=== PATIENT | male | born 1985 | race Two or more races ===

== ENCOUNTER 2021-03-07 12:00 | Emergency (ER) | payer OTHER, SELFPAY ==
--- NOTE | ~2021-03-07 | US_ITS ---
EXAMINATION: US VENOUS ULTRASOUND WITH DOPPLER LOWER EXTREMITY, RIGHT CLINICAL INFORMATION: Cellulitis right lower extremity. Assess for DVT. COMPARISON: Bilateral lower extremity venous ultrasound with Doppler 02/08/2018 TECHNIQUE: Ultrasound of the deep veins is performed from the hip to the calf with compression sonography and color and pulse Doppler assessment. Spectral analysis with color-flow imaging is performed. FINDINGS: There is normal venous compression and respiratory variation and augmented flow. The visualized common femoral vein, superficial femoral vein, profunda femoral vein, popliteal vein, and the trifurcation region shows no evidence of deep venous thrombosis. No popliteal fossa cyst demonstrated. US/US venous duplex LE RT IMPRESSION: No DVT demonstrated in the right lower extremity.
[2021-03-07 13:15] VITALS: BP 133/83; PULSE 70; RESP 16; TEMP 36.7; O2SAT 98; BMI 37.5
--- NOTE | 2021-03-07 13:51 | ED.LOWEXIN ---
HPI - Extremity Injury (Lower) General Chief Complaint: Extremity Injury, Lower Stated Complaint: Rt leg swollen Time Seen by Provider: 03/07/21 13:50 Source: patient Mode of arrival: ambulatory Limitations: no limitations History of Present Illness HPI Narrative: [age] year male came in for evaluation of right leg swelling and redness. Patient's symptoms started about 2 days ago, no trauma or injury to the right leg, started to notice redness and hotness on the calf area, no fever or chills, patient otherwise feels normal. Patient declined any recent travel nor prolonged immobilization or trauma to the right lower extremities. Related Data Previous Rx's Medication Instructions Recorded doxycycline hyclate 100 mg capsule 100 mg PO BID #20 cap 03/07/21 Allergies Allergy/AdvReac Type Severity Reaction Status Date / Time No Known Allergies Allergy Unverified 01/22/20 16:55 Review of Systems Review of Systems: All other systems are reviewed and are negative Constitutional: Reports as per HPI and Reports no additional constitutional complaints Eyes: Reports as per HPI and Reports no additional eye complaints Reports system reviewed and no additional complaints, except as documented Cardiovascular: Reports as per HPI and Reports no additional cardiovascular complaints Respiratory: Reports as per HPI and Reports no additional respiratory complaints Gastrointestinal: Reports as per HPI and Reports no additional gastrointestinal complaints Genitourinary: Reports no additional female genitourinary complaints Musculoskeletal: Reports no additional musculoskeletal complaints Skin/Breast: Reports system reviewed and no additional complaints, except as docu Psychiatric: Reports no additional psychiatric complaints Endocrine: Reports no additional endocrine complaints Hematologic/Lymphatic: Reports no additional hematologic/lymphatic complaints Allergic/Immunologic: Reports no additional allergic/immunologic complaints Reports system reviewed and no additional complaints, except as documented and Reports Abnormal speech present [facility] Past Medical History Medical History Asthma Gastric reflux Psoriasis Social History Social History Advance Directives: No Advance Directives Information Provided: No Physical Exam Vital Signs: Vital Signs: Last Vital Signs Temp 98.0 F 03/07/21 13:15 Pulse 70 03/07/21 13:15 Resp 16 03/07/21 13:15 BP 133/83 03/07/21 13:15 Pulse Ox 98 03/07/21 13:15 Body Mass Index 37.5 vital signs have been reviewed as appeared to be correct. Blood pressure normal. Heart rate normal. Respiration rate normal. Temperature normal. Oxygen saturation normal. Appearance: Alert. Oriented X3. No acute distress. Head: Normal external exam. Normocephalic. Atraumatic. No Sam signs noted. No raccoon eyes noted Eyes: PERRLA. EOMI. Conjunctiva and sclera normal. Eyelids normal. ENT: TM's Normal. Pharynx normal. Uvula midline. Moist mucous membranes. No trismus noted. No drooling noted. No muffled voice noted. Neck: Normal inspection. Neck supple. FROM. No adenopathy. Thyroid Normal. No meningeal signs. No neck mass noted. CVS: Normal heart rate and rhythm. Heart sound normal. No murmurs noted. Pulses normal throughout. Respiratory: No respiratory distress. Painless inspiration. Breath sounds normal. No wheezes/rales/rhonchi noted. Chest nontender. No accessory muscle usage noted or decreased air movement noted. Abdomen: Soft and nontender. Bowel sounds normal in all 4 quadrants. No distention noted. No organomegaly noted. No visible injury noted. Back: No CVA tenderness. Full range of motion noted. Skin: Skin warm and dry. Normal skin color. Normal skin turgor. No rashes/lesions/lacerations noted. Extremities: 6 x 7 cm area of redness and hotness and tenderness on the right calf. Neuro: Oriented X 3. Cranial nerve exam: II-XII are grossly intact No motor deficit. No sensory deficit. Reflexes normal. Course Course Course Narrative: right leg cellulitis, no evidence of DVT. Will start on doxycycline p.o. challenge have the patient return in 2 days for wound check. MDM - Extremity Injury (Lower) Imaging Data right leg ultrasound: Radiologist's impression: No DVT demonstrated in the right lower extremity. Discharge Plan Discharge Clinical Impression: Cellulitis Patient Disposition: Home, Self-Care Instructions: Cellulitis (ED) Additional Instructions: return to the ED in 2 days for wound check. Prescriptions: New doxycycline hyclate 100 mg capsule 100 mg PO BID Qty: 20 RF: 0 Referrals: [place],[facility] [Primary Care Provider] - 2 days
== END 2021-03-07 15:23 | disposition home or self-care (01) ==
PROVIDERS: Emergency Provider Emergency Medicine
DX: L03.115 Cellulitis of right lower limb (principal)
CPT/HCPCS: 93971; 99283; 99284

== ENCOUNTER 2022-03-02 19:44 | Emergency (ER) | payer OTHER, SELFPAY ==
[2022-03-02 19:48] VITALS: BP 147/85; PULSE 92; RESP 18; TEMP 37; O2SAT 95; BMI 36.9
--- NOTE | 2022-03-02 21:58 | ED_ITS ---
HPI - Wound/Laceration General Chief Complaint: Wound/Laceration Stated Complaint: Laceration to forehead Time Seen by Provider: 03/02/22 21:36 Source: patient Mode of arrival: ambulatory Limitations: no limitations History of Present Illness HPI narrative: patient comes to the emergency room complaining of a laceration to his forehead. Prior to arrival, patient was trying to fix his car, a ratchet fell on his forehead. patient did not lose consciousness, not on blood thinners, denies any other injuries. Patient states that he is up-to-date with his tetanus shot Related Data Previous Rx's Medication Instructions Recorded doxycycline hyclate 100 mg capsule 100 mg PO BID #20 caps 03/07/21 Allergies Allergy/AdvReac Type Severity Reaction Status Date / Time No Known Allergies Allergy Unverified 01/22/20 16:55 Review of Systems Review of Systems: Constitutional : No Weight loss, No Fever, No Chills, No Night Sweats, No Fatigue, No Malaise ENT/Mouth : No Hearing loss, No Ear Pain, No Nasal Congestion, No Sinus Pain, No Hoarseness, No sore throat, No Rhinorrhea, No Swallowing Difficulty Eyes: No Eye Pain, No Swelling, No Redness, No Foreign Body, No Discharge, No Vision Changes Cardiovascular : No Chest Pain, No SOB, No Dyspnea on Exertion, No Orthopnea, No Edema, No Palpitations Respiratory : No Cough, No Sputum, No Wheezing, No Smoke Exposure, No Dyspnea Gastrointestinal : No Nausea, No Vomiting, No Diarrhea, No Constipation, No abdominal Pain, No Hematochezia, No Melena Genitourinary : no irregular bleeding, No Dysuria, No Urinary Frequency, No Hematuria, No Urinary Incontinence, No Urgency, No Flank Pain, No Urinary Flow Changes, No Hesitancy Musculoskeletal : No joint pain, No Myalgias, No Joint Swelling Skin : laceration to the forehead Neuro : No Weakness, No Numbness, No Paresthesias, No Loss of Consciousness, No Dizziness, No Headache Psych : No Anxiety/Panic, No Depression, No SI/HI/AH/VH, No Social Issues, Heme/Lymph: No Bruising, No Bleeding,No Lymphadenopathy Endocrine : No Polyuria, No Polydipsia, No Temperature Intolerance PMFSH Past Medical History Medical History Asthma Gastric reflux Psoriasis Social History Social History Advance Directives: No Advance Directives Information Provided: No Physical Exam Vital Signs: Vital Signs: Last Vital Signs Temp 98.6 F 03/02/22 19:48 Pulse 92 03/02/22 19:48 Resp 18 03/02/22 19:48 BP 147/85 H 03/02/22 19:48 Pulse Ox 95 03/02/22 19:48 O2 Del Method 03/02/22 19:48 BMI result Body Mass Index 36.9 Const: Other: Appearance: Alert. Oriented X3. No acute distress. Eyes: Pupils equal, round and reactive to light. ENT: Pharynx normal. Neck: Normal inspection. Neck supple. No lymph nodes noted. No crepitus CVS: Normal heart rate and rhythm. Pulses normal. Normal S1 and S2 Respiratory: No respiratory distress. Breath sounds normal. No Wheezing. No rales Abdomen: Soft and nontender. No rigidity. No distention. Skin: Skin warm and dry. there is a 3 cm laceration between the eyebrows Extremities: No lower extremity edema. No Lacerations. No Rash Neuro: Oriented X 3. No motor deficit. No sensory deficit. Moving all e xtremities. No slurred speech. CN 2 through 12 grossly intact Psych: calm, cooperative, normal affect Course Course Course Narrative: Seven stitches were applied. Patient tolerated well the procedure. Procedures Laceration Laceration 1: Site: face ( Forehead, midline between the eyebrows) Description: irregular Depth: simple, single layer Local Anesthetic: lidocaine 2% Amount of anesthesia used (mL): 5 Pre-repair: wound explored Skin layer closed with: nylon Size (cm): 6-0 Number of sutures: 7 Discharge Plan Discharge Clinical Impression: Laceration Patient Disposition: Home, Self-Care Instructions: Laceration (ED) Additional Instructions: if you see any signs of infection such as redness, pus drainage, fever chills, please return to the emergency room. Your stitches need to be removed in 7-10 days. Prescriptions: No Action doxycycline hyclate 100 mg capsule 100 mg PO BID Qty: 20 0RF
== END 2022-03-03 01:22 | disposition home or self-care (01) ==
PROVIDERS: Emergency Provider Emergency Medicine
DX: S01.81XA Laceration without foreign body of other part of head, initial encounter (principal); W26.9XXA Contact with unspecified sharp object(s), initial encounter; Y93.9 Activity, unspecified; Y92.9 Unspecified place or not applicable; Y99.9 Unspecified external cause status; Z79.899 Other long term (current) drug therapy
CPT/HCPCS: 12014; 99281; 99284

== ENCOUNTER 2022-10-03 10:31 | Outpatient (REF) | payer OTHER, SELFPAY ==
--- NOTE | ~2022-10-03 | US_ITS ---
EXAMINATION: US VENOUS ULTRASOUND WITH DOPPLER LOWER EXTREMITY, LEFT CLINICAL INFORMATION: Pain in left lower extremity COMPARISON: None available. TECHNIQUE: Ultrasound of the deep veins is performed from the hip to the calf with compression sonography and color and pulse Doppler assessment. Spectral analysis with color-flow imaging is performed. FINDINGS: There is normal venous compression and respiratory variation and augmented flow. The visualized common femoral vein, superficial femoral vein, profunda femoral vein, popliteal vein, and the trifurcation region shows no evidence of deep venous thrombosis. The peroneal vein is not well visualized. There are small lymph nodes in the groin with largest lymph node measuring 4.5 x 1.2 x 2.8 cm. There is no significant popliteal fossa cyst. If the patient's symptoms persist, followup ultrasound in 5 days 7 days might be of value to exclude proximal propagation from a non-visualized calf vein. US/US venous duplex LE LT IMPRESSION: No DVT demonstrated in the left lower extremity. Several lymph nodes visualize in the left groin with largest lymph node measuring 4.5 cm. It has benign characteristics
== END 2022-10-03 10:32 | disposition home or self-care (01) ==
LOC: HO.US 10:31
PROVIDERS: Visit Provider Student in an Organized Health Care Education/Training Program
DX: M79.605 Pain in left leg (principal)
CPT/HCPCS: 93971

== ENCOUNTER 2022-10-04 09:11 | Emergency (ER) | payer OTHER, SELFPAY ==
[2022-10-04 09:19] VITALS: BP 144/102; PULSE 84; RESP 18; TEMP 37; O2SAT 97; BMI 39.6
[2022-10-04 10:00] VITALS: BP 147/99; PULSE 85; RESP 20; TEMP 37; O2SAT 94
--- NOTE | 2022-10-04 10:13 | ED_ITS ---
HPI - General Adult General Chief complaint: Skin/Abscess/Foreign Body Stated complaint: L leg infection Time Seen by Provider: 10/04/22 10:05 Source: patient Limitations: no limitations History of Present Illness HPI narrative: Patient states on Sunday he developed a small pimple on his left lower pablo. Since then it has spread to a large area of redness. He went to his PCP yesterday who ordered an ultrasound which was negative for DVT but did show inguinal lymphadenopathy. He was started on Keflex and has been taking it for 1 day. Since then, however, the area of redness has spread to about twice the size of the original area. It is now spreading up to just below his knee. He had a similar episode 2 years ago for which she received a dose of IV antibiotics in the emergency department was discharged home on p.o. antibiotics which was successful. He denies any fevers but states he felt sweaty this morning. No other significant systemic symptoms. No history of diabetes but he does have a history of eczema in that leg although lateral more proximal to where the infection started. Related Data Previous Rx's Medication Instructions Recorded doxycycline hyclate 100 mg capsule 100 mg PO BID #20 caps 03/07/21 cephalexin 500 mg capsule 1,000 mg PO BID #40 caps 10/04/22 doxycycline hyclate 100 mg capsule 100 mg PO BID #20 caps 10/04/22 Allergies Allergy/AdvReac Type Severity Reaction Status Date / Time No Known Allergies Allergy Unverified 01/22/20 16:55 Review of Systems Constitutional: Comments: No documented fevers. Positive sweats this morning Cardiovascular: Comments: No chest pain Respiratory: Comments: No cough or dyspnea Gastrointestinal: Comments: No abdominal symptoms Genitourinary: Comments: No urinary symptoms Musculoskeletal: Comments: Some left calf pain without swelling Integumentary/Breasts: Comments: Increased warmth and erythema is left lower leg which is spreading significantly over the last 24 hours Neurologic: Comments: No focal weakness Endocrine: Comments: No history of diabetes [facility] Past Medical History Medical History Asthma Gastric reflux Psoriasis Social History Social History Advance Directives: No Advance Directives Information Provided: Yes Physical Exam ED Vital Signs: Vital Signs - 24 hr 10/04/22 09:19 05/31/23 10:00 Temperature 98.6 F 98.6 F Pulse Rate 84 85 Respiratory Rate 18 20 Blood Pressure 144/102 H 147/99 H Pulse Oximetry 97 94 Oxygen Delivery Method Room Air Room Air BMI result Body Mass Index 39.6 Const Other: Awake and alert. No acute distress. Vital signs stable. Afebrile Resp Other: Clear and equal bilaterally Cardio Other: Regular rate and rhythm without murmurs rubs or gallops GI Other: Soft nontender nondistended Skin Other: Says warm pink and dry. Positive rash, erythema, blanching, with increased warmth, circumferential around left lower leg. Deep redness over the lower 3rd with faint area of erythema in the middle 3rd. There are no areas of fluctuance or clinical evidence of abscess. No areas of drainage. Neuro Other: No gross focal neuro deficits Medications Administered Discontinued Medications Generic Name Dose Route Start Last Admin Trade Name Freq PRN Reason Stop Dose Admin Sodium Chloride 1,000 mls @ 999 mls/hr 10/04/22 10:15 10/04/22 11:30 Ns IV 10/04/22 11:15 999 mls/hr .Q1H1M MARK Administration Doxycycline Hyclate 100 mg/ 250 mls @ 166.67 mls/hr 10/04/22 10:11 10/04/22 11:27 Sodium Chloride IV 10/04/22 11:40 166.67 mls/hr ONCE ONE Administration Medical Decision Making Medical Decision Making [facility] Narrative: Patient with cellulitis of the left lower leg getting significantly worse despite p.o. antibiotics. No obvious abscess. DVT was ruled out yesterday by ultrasound. Will order IV fluids, IV antibiotics. Patient had some mild systemic symptoms this morning but none currently and is afebrile in the emergency department. Will await labs to decide on disposition. 11:43. Workup shows chemistries are normal. Total white count is normal but there is a mild shift to the left. Lactic acid of 0.7. No evidence of sepsis or and organ involvement. He is stable for discharge home on p.o. antibiotics after his 1st dose of IV antibiotics. Lab Data 10/04/22 10:45 10/04/22 10:45 Labs: Lab Results 10/04/22 10/04/22 10/04/22 Range/Units 10:45 10:45 10:45 WBC 6.5 (4.8-10.8) X10*3/uL RBC 4.72 (4.60-5.80) X10*6/uL Hgb 14.6 (14.0-18.0) g/dl Hct 42.5 (42.0-52.0) % MCV 90.0 (80.0-98.0) fL MCH 30.9 (27.0-33.0) pg MCHC 34.4 (31.0-36.0) g/dl RDW 12.7 (11.0-16.0) % Plt Count 225 (160-400) X10*3/uL MPV 10.4 (9.4-12.4) fL Immature Gran % (Auto) 0.5 H (0.0-0.4) % Neut % (Auto) 75.1 H (45-73) % Lymph % (Auto) 16.2 L (20-40) % Mobile % (Auto) 7.7 (2-11) % Eos % (Auto) 0.3 (0-4) % Baso % (Auto) 0.2 (0-2) % Lymph # (Auto) 1.1 L (1.2-4.9) X10*3/uL Mobile # (Auto) 0.5 (0.1-1.2) X10*3/uL Eos # (Auto) 0.0 (0.0-0.4) X10*3/uL Baso # (Auto) 0.0 (0.0-0.2) X10*3/uL Abs Immat Gran (auto) 0.03 (0.00-0.03) X10*3/uL Absolute Neuts (auto) 4.9 (2.0-8.3) x10*3/uL Absolute Nucleated RBC 0.000 (0.0-0.012) X10*3/uL Nucleated RBC % (auto) 0.0 (0.0-0.2) /100WBC Sodium 143 (135-145) mmol/L Potassium 4.4 (3.3-5.1) mmol/L Chloride 106 (96-108) mmol/L Carbon Dioxide 31 H (22-29) mmol/L Anion Gap 10 L (12-20) BUN 14 (9-16) mg/dL Creatinine 0.85 (0.5-1.4) mg/dL Estim Creat Clear Calc 173.9 Estimated GFR > 60 Random Glucose 107 (60-115) mg/dL Lactic Acid 0.7 (0.5-2.0) mmol/L Calcium 9.4 (8.4-10.2) mg/dL Total Bilirubin 0.9 (0.0-1.0) mg/dL AST 27 (5-37) U/L ALT 49 H (0-40) U/L Alkaline Phosphatase 98 (39-117) U/L Total Protein 6.9 (6.5-8.0) g/dL Albumin 4.0 (3.5-5.0) g/dL Discharge Plan Discharge Clinical Impression: Cellulitis Patient Disposition: Home, Self-Care Instructions: Cellulitis (ED) Prescriptions: New cephalexin 500 mg capsule 1,000 mg PO BID Qty: 40 0RF doxycycline hyclate 100 mg capsule 100 mg PO BID Qty: 20 0RF No Action doxycycline hyclate 100 mg capsule 100 mg PO BID Qty: 20 0RF
[2022-10-04 11:12] LABS: MANUAL DIFF FLAG NO
[2022-10-04 11:15] LABS: Basophils Percent Auto 0.2 % (0-2); Eosinophils Percent Auto 0.3 % (0-4); Hematocrit 42.5 % (42.0-52.0); Hemoglobin 14.6 g/dl (14.0-18.0); Imm Gran Abs Auto 0.03 X10*3/uL (0.00-0.03); Imm Gran Pct Auto 0.5 % (0.0-0.4); Lymphocytes Absolute Auto 1.1 X10*3/uL (1.2-4.9); Lymphocytes Percent Auto 16.2 % (20-40); Mean Corpuscular HGB Conc 34.4 g/dl (31.0-36.0); Mean Corpuscular Hemoglobin 30.9 pg (27.0-33.0); Mean Platelet Volume 10.4 fL (9.4-12.4); Monocytes Absolute Auto 0.5 X10*3/uL (0.1-1.2); Monocytes Percent Auto 7.7 % (2-11); Neutrophils Absolute Auto 4.9 x10*3/uL (2.0-8.3); Neutrophils Percent Auto 75.1 % (45-73); Platelet Count 225 X10*3/uL (160-400); Red Blood Count 4.72 X10*6/uL (4.60-5.80); Red Cell Distribution Width 12.7 % (11.0-16.0); White Blood Count 6.5 X10*3/uL (4.8-10.8)
[2022-10-04 11:26] LABS: Lactic Acid 0.7 mmol/L (0.5-2.0)
[2022-10-04] MEDS: Doxycycline Hyclate 100 MG in 0.9 % Sodium Chloride 250 ML 166.67 MG IV (11:27)
[2022-10-04 11:28] LABS: Alanine Aminotransferase 49 U/L (0-40); Alkaline Phosphatase 98 U/L (39-117); Anion Gap 10 (12-20); Aspartate Amino Transferase 27 U/L (5-37); Bilirubin Total 0.9 mg/dL (0.0-1.0); Blood Urea Nitrogen 14 mg/dL (9-16); Calcium 9.4 mg/dL (8.4-10.2); Carbon Dioxide 31 mmol/L (22-29); Chloride 106 mmol/L (96-108); Creatinine Clr Calc Pharmacy 173.9; Estimated Glomerular Filt Rate > 60; Glucose Random 107 mg/dL (60-115); Potassium 4.4 mmol/L (3.3-5.1); Sodium 143 mmol/L (135-145); Total Protein 6.9 g/dL (6.5-8.0)
[2022-10-04] MEDS: 0.9 % Sodium Chloride 1,000 ML 999 ML IV (11:30)
[2022-10-04 12:26] VITALS: BP 162/107; PULSE 65; RESP 18; TEMP 36.9; O2SAT 99
--- NOTE | 2022-10-04 13:33 | PC.NURSE ---
doxycycline gtt still running. will dc after zosyn infuses. pt in nad, resting comfortably, aware of plan for care.
[2022-10-04] MEDS: cefTRIAXone sodium 1 GM in 0.9 % Sodium Chloride 50 ML IV (14:03)
== END 2022-10-04 14:48 | disposition home or self-care (01) ==
PROVIDERS: Emergency Provider Emergency Medicine
DX: L03.116 Cellulitis of left lower limb (principal); M79.662 Pain in left lower leg
CPT/HCPCS: 36415; 80053; 83605; 85025; 87040; 96365; 96366; 96367; 99284; J0696

== ENCOUNTER 2022-11-09 14:52 | Outpatient (REF) | payer OTHER, SELFPAY | END 2022-11-09 14:53 | disposition home or self-care (01) | LOC: HO.US 14:52 | PROVIDERS: Absent Provider General Practice; PCP General Practice; Visit Provider Student in an Organized Health Care Education/Training Program | DX: R22.41 Localized swelling, mass and lump, right lower limb (principal) | CPT/HCPCS: 93971 ==

== ENCOUNTER 2022-11-30 10:52 | Outpatient (AMB) | payer OTHER, SELFPAY ==
--- NOTE | 2022-11-30 10:59 | MHC.OFFVIS ---
Intake Vital Signs 11/30/22 11:08 Height 6 ft 1 in Weight 319 lb 8 oz BMI 42.1 BP 187/96 H Blood Pressure Location Lt brachial Position Sitting Pulse 89 Intake Visit Reasons: Enlarged left inguinal nodes Intake Note: Patient is seen in office for evaluatin and treatment of enlarged left inguinal nodes. Patient c/o: started with red spot on the legs aprox. 3 months, had an ultrasound done that's when he found out about the lymph nodes, legs gets swollen, twinkling [employer] Required: No Accompanied by: Self / Same As Patient Allergies No Known Allergies Allergy (Unverified 11/30/22 11:04) Medication List - Last Reconciled 11/30/22 by Eric South MD blood pressure test kit-large As directed cephalexin 1,000 mg (2 x 500 mg) PO BID cetirizine 10 mg PO DAILY PRN chlorthalidone 25 mg PO QAM doxycycline hyclate 100 mg PO BID doxycycline hyclate 100 mg PO BID halobetasol propionate 0.05% appl topical BID pantoprazole 40 mg PO DAILY HPI HPI Comments History of Present Illness Details 37-year-old male patient presenting for evaluation of left inguinal lymphadenopathy. He reports a 3 month history of swelling and redness in the bilateral legs left greater than right. He was diagnosed with a cellulitis and subsequently started on antibiotics. Evaluation with ultrasounds on several occasions revealed no evidence of a DVT. Examination of the groin however did revealed mildly enlarged inguinal lymph node. He denies a palpable mass or pain in the groin. He denies any previous groin surgery. He denies varicose veins. Since starting oral antibiotics he reports the redness has improved. The swelling is virtually gone in the morning when he wakes up out of bed but by the end the day the swelling returns. [facility] Medical History Asthma Gastric reflux Psoriasis Family History Brother Breast cancer Social History Alcohol intake: current Patient Tobacco Use Status: Former Tobacco user Review of Systems Const All systems reviewed & are unremarkable except as noted in HPI and below Denies chills, Denies fever(s), Denies headache(s), Denies poor appetite and Denies weakness ENT Denies headache(s) Card Denies chest pain, Denies irregular heart rhythm, Denies palpitations and Denies dyspnea Resp Denies cough, Denies excessive phlegm production and Denies dyspnea GI Denies abdominal pain, Denies bloating, Denies change in bowel habits, Denies constipation, Denies heartburn, Denies diarrhea, Denies nausea and Denies vomiting Denies difficulty urinating and Denies urinary frequency Musc Denies back pain, Denies muscle weakness and Denies numbness Skin/Breast Denies changing lesions and Denies unusual bruising Neuro Denies headache(s), Denies numbness, Denies paresthesias and Denies weakness Psych Denies anxiety and Denies depression Endo Denies palpitations Ian/Lymph Denies lymphadenopathy Physical Exam Vital Signs: Last Vital Signs Pulse 89 11/30/22 11:08 BP 187/96 H 11/30/22 11:08 BMI result Body Mass Index 42.1 Const General: cooperative and no acute distress Nutritional Appearance: well nourished Orientation/consciousness: patient oriented x3 Limitations: no limitations HEENT Head: Yes normocephalic and Yes atraumatic Ears: hearing grossly normal bilaterally Resp Effort & Inspection: normal respiratory effort, no audible wheezes, no cough and no respiratory distress Cardio Jugular venous distension: no JVD GI Inspection: Yes normal to inspection Skin Other: Warm, dry, no rash Neuro General: patient oriented x3 Extrem Other: Bilateral 1+ edema with mild erythema bilaterally. No ulcerations identified. No varicose veins are noted in the standing position. Palpation of the bilateral groins is negative for a palpable lymph node. No tenderness is elicited with palpation of the groins. Assessment & Plan Assessment & Plan (1) Lymphadenopathy: Code(s): R59.1 - Generalized enlarged lymph nodes Plan 37-year-old male patient with bilateral lower extremity edema and erythema suggestive of a cellulitis. Evaluation with ultrasound was negative for DVT however a moderately enlarged lymph node was identified in the left groin. On examination no palpable node is appreciated. Findings may be explained by a reactive lymph nodes which would not need to be removed. I would not recommend any surgical intervention at this time. If his leg edema continues I would suggest considering a venous Doppler to evaluate the superficial veins for venous reflux disease. He should follow up as needed. Coding Level of Care Code New Pt Level 4 (56129) Diagnoses Lymphadenopathy R59.1
[2022-11-30 11:08] VITALS: BP 187/96; PULSE 89; BMI 42.1
== END 2022-11-30 11:14 | disposition home or self-care (01) ==
PROVIDERS: PCP General Practice; Referring Provider Student in an Organized Health Care Education/Training Program; Visit Provider Surgery
DX: R59.1 Generalized enlarged lymph nodes (principal)
CPT/HCPCS: 99203

== ENCOUNTER → 2022-11-30 10:52 | Outpatient (BNVA) | payer OTHER, SELFPAY | PROVIDERS: PCP General Practice; Referring Provider Student in an Organized Health Care Education/Training Program; Visit Provider Surgery | DX: R59.1 Generalized enlarged lymph nodes (principal) | CPT/HCPCS: 99202 ==

== ENCOUNTER 2023-01-02 13:15 | Outpatient (AMB) | payer OTHER, SELFPAY ==
[2023-01-02 13:37] VITALS: BMI 42.0
--- NOTE | 2023-01-02 13:37 | MHC.OFFVIS ---
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 He also is feeling a tingling sensation on the bottom of both feet. 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 Complaints include pain over varicosities, swelling of lower extremities, cramping, fatigue, and heaviness of the lower extremities. It has been affecting there daily activities including walking and working as a former learning center instructor. It is noted more so in right leg. Patient denies any previous venous surgery or injections. Patient denies any history of DVT/ PE. Patient denies any history of phlebitis. Trial of compression includes - [id number] They now present for vascular evaluation regarding their varicose veins. [facility] Medical History Asthma Gastric reflux Psoriasis Family History Brother Breast cancer Social History Alcohol intake: current Patient Tobacco Use Status: Former Tobacco user Review of Systems Const Reports as per HPI ENT Reports no additional complaints Card Denies chest pain, Denies chest pain at rest and Denies chest pain with activity Resp Denies chest congestion and Denies cough GI Reports no additional complaints Musc Details: pain over varicosities, aching of lower extremities, swelling, cramping, heaviness and tiredness, itching Denies abnormal gait Skin/Breast Reports pruritus and Denies wounds Neuro Reports no additional complaints and Denies abnormal gait Psych Denies no additional complaints Physical Exam Vital Signs: BMI result Body Mass Index 42.0 Const General: cooperative, healthy appearing and comfortable Orientation/consciousness: oriented to person, oriented to place and oriented to time Neck Carotids: no bruits Chest Chest palpation & inspection: normal inspection of the chest and normal palpation of entire chest wall Resp Effort & Inspection: normal respiratory effort and able to speak in complete sentences Cardio Rate: regular rate Heart sounds: S1 normal heart sound present and S2 normal heart sound present Peripheral pulses: Peripheral pulses 2+ throughout GI Inspection: Yes normal to inspection Skin Other: +2 edema, large rope-like varicosities greater than 4 mm CEAP Classification C4 - skin color changes Ep - Etiology Primary As - superficial veins P - reflux General skin exam: dry skin Neuro General: oriented to person, oriented to place and oriented to time Extrem Right lower extremity: full ROM, normal capillary refill and edema Left lower extremity: full ROM, normal capillary refill and edema Psych Mental Status: mental status grossly normal Assessment & Plan Assessment & Plan (1) Varicose veins of right lower extremity with inflammation: Code(s): I83.11 - Varicose veins of right lower extremity with inflammation Plan: In short, the patient has evidence of venous insufficiency. I have discussed the pathophysiology with the patient. In addition I have provided informational material regarding venous disease to the patient. We have discussed conservative measures including compression, elevation, and exercise. I have also provided a handout regarding appropriate use of compression stockings and where to purchase good compression stockings as well. I have taken the liberty of ordering venous insufficiency testing with the patient. They will follow up with me after testing. The patient had an opportunity to ask questions regarding the treatment plan. All questions were answered. Imaging studies, laboratory studies and physical exam results were discussed and reviewed in detail. No major barriers to understanding were identified. The patient expressed understanding and agreement with the above treatment plan. The patient is aware they should contact our office by phone for worsening of the current condition or the appearance of new symptoms. Thank you for allowing me to participate in the vascular care of this patient. If you have any questions or concerns regarding the treatment for the above condition please do not hesitate to contact me. The office telephone contact is [phone]. This note is constructed using voice recognition software. While every effort has been made to ensure accuracy, test engineering intern errors may have been included. Thank you for allowing me to participate in the care of your patient. Yours sincerely, Marco Cochran MD, FACS, R.P.V.I. Orders: Orders US venous duplex LE BI 1 Week I83.11 - Varicose veins of right lower extremity with inflammation Coding Level of Care Code New Pt Level 4 (74667) Diagnoses Varicose veins of right lower extremity with inflammation I83.11
== END 2023-01-02 14:04 | disposition home or self-care (01) ==
PROVIDERS: PCP General Practice; Visit Provider Surgery Vascular Surgery
DX: I83.11 Varicose veins of right lower extremity with inflammation (principal)
CPT/HCPCS: 99203

== ENCOUNTER → 2023-01-02 13:15 | Outpatient (BNVA) | payer OTHER, SELFPAY | PROVIDERS: PCP General Practice; Visit Provider Surgery Vascular Surgery | DX: I83.11 Varicose veins of right lower extremity with inflammation (principal) | CPT/HCPCS: 99202 ==

== ENCOUNTER 2023-01-15 08:23 | Outpatient (REF) | payer OTHER, SELFPAY ==
--- NOTE | ~2023-01-15 | US_ITS ---
EXAMINATION: US LOWER EXTREMITY VENOUS (REFLUX EXAM), BILATERAL CLINICAL INDICATION: Chronic venous insufficiency with lower extremity varicose veins, inflammation and pain COMPARISON: None. TECHNIQUE: Color flow triplex imaging and compression Doppler was performed to evaluate both the deep and the superficial systems bilaterally. To evaluate the superficial system, the examination was performed in the upright position. Color-flow Doppler ultrasound and compression ultrasound were utilized. In addition, maneuvers were utilized to demonstrate reflux. FINDINGS: 1. DEEP VENOUS ULTRASOUND OF THE RIGHT LOWER EXTREMITY: Common Femoral Vein: Compressible, normal respiratory variation and augmented flow. Femoral Vein: Compressible, normal color flow and augmentation. Popliteal Vein: Compressible, normal augmentation. Deep Reflux: There is no evidence of reflux in the deep system in either the common femoral vein or the popliteal vein. There is no evidence of a Berry's cyst. 2. SUPERFICIAL ULTRASOUND WITH DOPPLER OF RIGHT LOWER EXTREMITY: GREAT SAPHENOUS VEIN: Saphenofemoral Junction: 0.8 cm; Reflux: 0 ms Proximal Thigh: 0.3 cm; Reflux: 0 ms Mid Thigh: 0.4 cm; Reflux: 1940 ms Above Knee: 0.4 cm; Reflux: 2252 ms At Knee: 0.3 cm; Reflux: 0 ms Below Knee: 0.4 cm; Reflux: 0 ms Mid Calf: 0.3 cm; Reflux: 0 ms Ankle: 0.4 cm; Reflux: 0 ms DUPLICATED MEDIAL GREAT SAPHENOUS VEIN: Diameter: None imaged Reflux: NA DUPLICATED LATERAL GREAT SAPHENOUS VEIN: Diameter: 0.3 cm Reflux: None SMALL SAPHENOUS VEIN: Proximal: 0.5 cm; Reflux: 0 ms Distal: 0.2 cm; Reflux: 0 ms VEIN OF GIACOMINI: Size: NA Reflux: NA PERFORATORS: Location: None significant Size: NA Reflux: NA VARICOSITIES: Location: Proximal and mid thigh Size: 0.3 to 0.4 cm Reflux: None 3. DEEP VENOUS ULTRASOUND OF THE LEFT LOWER EXTREMITY: Common Femoral Vein: Compressible, normal respiratory variation and augmented flow. Femoral Vein: Compressible, normal color flow and augmentation. Popliteal Vein: Compressible, normal augmentation. Deep Reflux: There is no evidence of reflux in the deep system in either the common femoral vein or the popliteal vein. There is no evidence of a Berry's cyst. 4. SUPERFICIAL ULTRASOUND WITH DOPPLER OF LEFT LOWER EXTREMITY: GREAT SAPHENOUS VEIN: Saphenofemoral Junction: 0.5 cm; Reflux: 0 ms Proximal Thigh: 0.4 cm; Reflux: 0 ms Mid Thigh: 0.3 cm; Reflux: 0 ms Above Knee: 0.3 cm; Reflux: 2076 ms At Knee: 0.3 cm; Reflux: 0 ms Below Knee: 0.4 cm; Reflux: 0 ms Mid Calf: 0.3 cm; Reflux: 0 ms Ankle: 0.4 cm; Reflux: 0 ms DUPLICATED MEDIAL GREAT SAPHENOUS VEIN: Diameter: None imaged Reflux: NA DUPLICATED LATERAL GREAT SAPHENOUS VEIN: Diameter: 0.3 cm Reflux: None SMALL SAPHENOUS VEIN: Proximal: 0.8 cm; Reflux: 0 ms Distal: 0.3 cm; Reflux: 1956 ms VEIN OF GIACOMINI: Size: NA Reflux: NA PERFORATORS: Location: None significant Size: NA Reflux: NA VARICOSITIES: Location: None significant Size: NA Reflux: NA US/US venous duplex LE BI IMPRESSION: Right: Severe segmental reflux in the great saphenous vein within the mid and distal thigh. Branching varicosities are seen within the thigh. Left: Focal segmental reflux in the great saphenous vein in the distal thigh and small saphenous vein in the distal calf
== END 2023-01-15 08:24 | disposition home or self-care (01) ==
LOC: HO.US 08:23
PROVIDERS: PCP General Practice; Visit Provider Surgery Vascular Surgery
DX: I83.11 Varicose veins of right lower extremity with inflammation (principal)
CPT/HCPCS: 93970

== ENCOUNTER 2023-08-04 11:08 | Emergency (ER) | payer OTHER, SELFPAY ==
--- NOTE | ~2023-08-04 | CT_ITS ---
CT LUMBAR SPINE WITHOUT CONTRAST CLINICAL INFORMATION: Right-sided low back pain after a twisting accident. COMPARISON: None available. TECHNIQUE: A multidetector CT acquisition of the lumbar spine is obtained without contrast. This CT examination was performed using dose optimization techniques as appropriate, variously including the following: *Automated exposure control *Adjustment of mA and/or kV according to patient size (this includes techniques or standardized protocols for targeted exams where dose is matched to indication/reason for exam; i.e. extremities or head) *Use of iterative reconstruction technique FINDINGS: There are 5 nonrib-bearing lumbar-type vertebral bodies. Lumbar alignment is normal. The vertebral body heights overall maintained. There are no acute fractures and there are no acute subluxations. There are chronic endplate Schmorl's nodes at the T12, L1, L2, and L4 levels. There are no acute fractures and there are no acute subluxations. 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 No significant extraspinal soft tissue findings. A large soft disc herniation is suspected along the right dorsal aspect of the L5 vertebral body, likely an inferiorly migrating disc extrusion from the L4-L5 disc, that completely effaces the right L5 lateral recess, suspected to compress the right L5 nerve root in this location. A lumbar spine MRI with and without IV contrast would be helpful in more definitively assessing this abnormality and excluding alternative pathology. At L5-S1, right and left lateral disc protrusions that are in part disc osteophyte along with facet arthropathy result in severe bilateral foraminal stenosis with compression of the exiting L5 nerve roots bilaterally. CT/CT lumbar spine wo IV con IMPRESSION: - A large soft disc herniation is suspected along the right dorsal aspect of the L5 vertebral body, likely an inferiorly migrating disc extrusion from the L4-L5 disc, that completely effaces the right L5 lateral recess, suspected to compress the right L5 nerve root in this location. A lumbar spine MRI with and without IV contrast would be helpful in more definitively assessing this abnormality and excluding alternative pathology. - At L5-S1, right and left lateral disc protrusions that are in part disc osteophyte along with facet arthropathy result in severe bilateral foraminal stenosis with compression of the exiting L5 nerve roots bilaterally.
--- NOTE | ~2023-08-04 | MR_ITS ---
EXAMINATION: MR LUMBAR SPINE WITHOUT AND WITH CONTRAST CLINICAL INFORMATION: Question L5 nerve root compression. Right-sided low back pain reported on recent CT imaging of the lumbar spine. COMPARISON: CT lumbar spine dated 08/04/2023. TECHNIQUE: Multiplanar, multisequence imaging was obtained. Intravenous contrast: Gadavist 10 mL. Limited study with motion artifacts. FINDINGS: VERTEBRAL BODIES AND PARASPINAL STRUCTURES: The marrow signal is within normal limits. There is a mild posterior subluxation at the L4-L5 level with reduced intradiscal signal. Reduced intradiscal signal and mild disc space narrowing evident at the L5-S1 level. There are no compression fractures. The remaining lumbar discs are well-hydrated. The paraspinal soft tissues are unremarkable. CONUS MEDULLARIS AND CAUDA EQUINE: The distal cord, conus tip, and cauda equina nerve roots appear normal. No pathologic intradural enhancement is seen. SPINAL LEVELS: L1-L2, L2-L3, and L3-L4: Well-hydrated normal appearance of the discs without central canal stenosis or foraminal narrowing. L4-L5: Reduced intradiscal signal and posterior subluxation present with a broad-based posterior disc bulge. An annular tear is visible with a large central disc extrusion measuring up to 2 cm TV x 1.9 cm CC x 1.5 cm AP. The disc extrusion severely compresses the thecal sac and migrates inferiorly into the right lateral recess at the level of the inferior endplate of L5, resulting in severe compression of the right L5 nerve root and mass effect upon the right S1 nerve root as well. Enhancement surrounds the disc extrusion as well. Mild facet arthropathy noted. Bulging disc mildly encroaches upon the right neural foramen. L5-S1: Reduced intradiscal signal and mild loss of disc height with a broad-based posterior disc bulge present, with mild impression upon the ventral thecal sac. A focal left subarticular zone disc extrusion results in mass effect upon the left S1 nerve root. Lateralized bulging disc and osseous spurring result in moderate left foraminal encroachment and mild mass effect upon the exiting left L5 nerve root. No central canal stenosis. Endplate spurring and bulging disc also moderately encroach upon the right neural foramen. MR/MR lumbar spine wo/w con IMPRESSION: Limited study with motion artifacts. Posterior subluxation and disc degeneration at the L4-L5 level, with a large central to right lateral recess disc extrusion migrating inferiorly to the inferior L5 endplate level. Large disc extrusion significantly compresses the thecal sac and results in mass effect upon the right L5 and S1 nerve roots. Posterior disc bulge and focal left subarticular zone disc extrusion at the L5-S1 level with mass effect upon the left S1 nerve root. Bulging disc and endplate spurring with moderate left foraminal encroachment and mild distortion of the exiting left L5 nerve root. Moderate right foraminal narrowing. No central canal stenosis. Imaging findings reported to BIBI Valenzuela at 3:36 PM on 08/04/2023.
[2023-08-04 11:20] VITALS: BP 150/97; PULSE 88; RESP 18; TEMP 36.4; O2SAT 96; BMI 42.0
[2023-08-04] MEDS: Acetaminophen 325 MG TABLET 650 MG PO (11:57)
[2023-08-04] MEDS: Lidocaine 4 % Patch ADH..PATCH 1 PATCH TRANSDERMA (11:59)
[2023-08-04] MEDS: Ketorolac Tromethamine 15 MG/ML VIAL IM (12:00)
--- NOTE | 2023-08-04 12:00 | ED_ITS ---
HPI - Back Pain/Injury General Chief Complaint: Back Pain/Injury Stated Complaint: r foot pain up to hip Time Seen by Provider: 08/04/23 11:11 Source: patient and family Mode of arrival: ambulatory Limitations: no limitations History of Present Illness HPI Narrative: 38-year-old male with a past medical history of chronic back pain presents to the emergency department, his , for concerns of right lower back pain radiating down his right lower extremity for the past 2 weeks. He states he was opening a car door when the handle broke causing him to twist his back incorrectly. He reports he has been having pain since. He denies any urinary or fecal incontinence, urinary hesitancy, saddle anesthesias, new paresthesias, or weakness. He reports pain is exacerbated when standing or moving and is relieved when lying down. He reports palpable back pain at the right low back and denies pain throughout the RLE while lying down. He states he has been using [id number] Tylenol in addition to his 's Flexeril and meloxicam and Percocet that he has purchased on the streets . He states he has had moderate relief of pain with these medications. He denies any swelling, erythema, ecchymosis, or history of IV drug use , fever, or chills pertinent positives and negatives discussed in HPI Related Data Home Medications Medication Instructions Recorded Confirmed blood pressure test kit-large #1 ea 11/30/22 11/30/22 cetirizine 10 mg tablet 10 mg PO DAILY PRN 11/30/22 11/30/22 chlorthalidone 25 mg tablet 25 mg PO QAM 11/30/22 11/30/22 halobetasol propionate 0.05 % appl topical BID 11/30/22 11/30/22 topical cream pantoprazole 40 mg tablet,delayed 40 mg PO DAILY 11/30/22 11/30/22 release Previous Rx's Medication Instructions Recorded doxycycline hyclate 100 mg capsule 100 mg PO BID #20 caps 03/07/21 cephalexin 500 mg capsule 1,000 mg (2 x 500 mg) PO BID #40 10/04/22 caps doxycycline hyclate 100 mg capsule 100 mg PO BID #20 caps 10/04/22 methylprednisolone 4 mg tablets in 4 mg PO DAILY #21 ea 08/04/23 a dose pack (Medrol (Lauri)) oxycodone 5 mg capsule 5 mg PO Q6H PRN pain #16 caps 08/04/23 Allergies Allergy/AdvReac Type Severity Reaction Status Date / Time No Known Allergies Allergy Unverified 11/30/22 11:04 Review of Systems 2 Review of Systems: Yes all other systems are reviewed and are negative [facility] Past Medical History Medical History Asthma Gastric reflux Psoriasis Family History Family History Brother Breast cancer Social History Social History Alcohol intake: current Patient Tobacco Use Status: Former Tobacco user Advance Directives: No Advance Directives Information Provided: No Physical Exam 2 Vital Signs: Vital Signs: Last Vital Signs Temp 98.7 F 08/04/23 17:15 Pulse 75 08/04/23 17:15 Resp 15 08/04/23 17:15 BP 165/98 H 08/04/23 17:15 Pulse Ox 97 08/04/23 17:15 O2 Del Method Room Air 08/04/23 17:15 BMI result Body Mass Index 42.0 Nursing notes and vital signs reviewed. GENERAL APPEARANCE: A&0 x 4, generally well appearing, no acute distress HENMT: Normal to inspection, atraumatic, face symmetrical. Normal external ears, nose, and oropharynx clear. EYE: PERRLA, EOM intact, structures appear normal NECK: Supple without lymphadenopathy. No stiffness or restricted ROM. CHEST: Normal to inspection HEART: Normal rate and regular rhythm, normal S1/S2, no M/R/G LUNGS: LS CTA, moving air well. Able to speak in complete sentences. No crackles, wheezes, or rhonchi auscultated ABDOMEN: Soft, nontender, nondistended. Normal bowel sounds noted BACK: No CVAT, no obvious deformity EXTREMITIES: Moving all extremities without difficulty. No cyanosis, clubbing, or edema. Normal capillary refill. NEUROLOGICAL: Alert and oriented, moving all 4 extremities with equal strength. CN not formally tested but appearing grossly intact. Observed to ambulate with normal gait. Cognition normal SKIN: Warm and dry without any lesions, rash, or visible sores PSYCH: Cooperative, normal affect, normal thought process Back/Spine/Pelvis: Coccyx: Coccyx tenderness present Back/spine/pelvis image: 1. Tenderness to palp Course Reevaluation(s) Reevaluation #1: Lumbar CT showing concern for compression from disc extrusion at L4-L5 with recommendation for MRI. MRI lumbar spine ordered. Time: 12:30 Reevaluation #2: I spoke with radiologist regarding lumbar MRI with evidence of L4-L5 huge disc extrusion compressing the thecal sac. Call out to [facility] for neurosurgery consult. Pending return call. Time: 15:40 Reevaluation #3: Case discussed with BIBI Faulkner from Neurosurgery, with plans for outpatient follow-up as patient does not currently have any urinary retention or noted foot drop. BIBI recommends Medrol Dosepak and pain medication for management of symptoms. Strict return precautions given regarding worsening symptoms and follow-up. Time: 16:35 Consultations Consultation #1: Neurosurgery Time: 16:25 Medications Administered Discontinued Medications Generic Name Dose Route Start Last Admin Trade Name Freq PRN Reason Stop Dose Admin Acetaminophen 650 mg 08/04/23 11:34 08/04/23 11:57 Acetaminophen 325 Mg Tablet PO 08/04/23 11:35 650 mg ONCE ONE Administration Dexamethasone Sodium Phosphate 10 mg 08/04/23 16:47 08/04/23 17:04 Dexamethasone Sod Phosphate 10 Mg/Ml Vial IVPUSH 08/04/23 16:48 10 mg ONCE ONE Administration Gadobutrol 10 ml 08/04/23 14:52 08/04/23 14:52 Gadobutrol 10 Ml Vial IVPUSH 08/04/23 14:53 10 ml ONCE ONE Administration Hydromorphone HCl 0.5 mg 08/04/23 13:49 08/04/23 14:08 Hydromorphone Hcl 0.5 Mg/0.5 Ml Syringe IVPUSH 08/04/23 13:50 0.5 mg ONCE ONE Administration Protocol Ketorolac Tromethamine 15 mg 08/04/23 11:34 08/04/23 12:00 Ketorolac Tromethamine 15 Mg/Ml Vial IM 08/04/23 11:35 15 mg ONCE ONE Administration Lidocaine 1 patch 08/04/23 11:34 08/04/23 11:59 Lidocaine 4 % Patch Adh..Patch TRANSDERMA 08/04/23 11:35 1 patch ONCE ONE Administration Protocol Morphine Sulfate 2 mg 08/04/23 13:10 08/04/23 13:17 Morphine Sulfate 2 Mg/Ml Cartridge IVPUSH 08/04/23 13:11 2 mg ONCE ONE Administration Protocol Medical Decision Making Medical Decision Making MDM Narrative: Old records reviewed for previous imaging, lab studies, ECGs, and notes. Patient was assessed the emergency department with no acute distress or toxicity noted. Tylenol, Toradol, and lidocaine patch initially provided for management of discomfort With little relief and comfort and patient was given morphine in addition to Dilaudid for further management. CT scan was completed which showed concern for L4-L5 disc compression and patient was ultimately sent to MRI which also showed L4-L5 disc extrusion with thecal cord compression. Neurosurgery was consulted who reviewed imaging and ultimately recommended outpatient follow-up in 2 weeks as patient does not have any symptoms of urinary retention or footdrop. Patient given Decadron here in the emergency department and Medrol Dosepak since patient's preferred pharmacy in addition to oxycodone for management of discomfort. Patient educated that he can continue use of slxw-qap-snyqcqo medications and educated not to use other people's prescriptions or to get medications off the street. patient reports understanding of need for follow-up in addition to anti-inflammatories and prescribed steroids. Patient educated not to drive or drink alcohol while taking oxycodone pain medication. Patient is safe for discharge at this time with plan for bnib-qjj-lyhjdor Tylenol and/or NSAID such as ibuprofen or naproxen for fever/discomfort with dosing as per packaging. HPI, PE, diagnostics, and plan discussed with patient and family with no unanswered questions at this time. Strict return precautions given to return to the emergency department with new, worsening, or concerning emergent symptoms. Recommended to follow-up with there primary care provider in 24-48 hours for further treatment and management. Differential Diagnosis Differential Diagnoses: The differential diagnosis associated with the presentation includes but not limited to cauda equina, stenosis, radiculopathy, fracture, dislocation, fracture, dislocation, strain, sprain Consult Healthcare Provider Management of the patient was discussed with: [facility] neurosurgery Independent Interpretation I performed an independent interpretation of an: CT Scan Interpretation: MRI Radiology Impression Discussion of test interpretation with radiology: I discussed test interpretation with the radiologist Radiologist Impression: MRI results discussed with [facility] Independent Historian Clinical information obtained from an independent historian. History obtained from or confirmed by: Spouse External Record Review External record reviewed: Inpatient record, Outpatient record, Prior outpatient labs and Prior outpatient radiology Prescription Management I considered prescription management with: Antibiotic were considered but no bacterial infection was identified Critical Care Time Critical Care Time Critical Care Time: Yes Total Critical Care Time: 75 Attestation: 75 minutes critical care time was spent above typical care time Discharge Plan Discharge Clinical Impression: Protrusion of lumbar intervertebral disc Patient Disposition: Home, Self-Care Instructions: Acute Low Back Pain (ED), Foot Drop (ED) Additional Instructions: Your seen in the emergency department for concerns of right-sided back pain. A CT scan and an MRI were done showing protrusion of your disc in your lower back. This protrusion is putting compression on your nerves. Neurosurgery at [facility] was consulted who reviewed your imaging and recommends outpatient follow-up at this time. Please present to the emergency department as soon as possible if you have difficulty with urination or you notice drop foot. This is where you are unable to lift the front part of the foot. This is usually a sign of worsening spinal issues Steroids were given to her in the emergency department and sent to your preferred pharmacy. Please use full course as directed. Pain medication was also sent to your pharmacy. Please do not drink or drive alcohol while taking pain medication. Please follow-up with neurosurgery at the provided contact information. They would like to see within 2 weeks. You are safe for discharge at this time with plan for management of fever or discomfort with jzkj-vwc-dcrksit Tylenol and/or NSAID such as ibuprofen or naproxen with dosing as per packaging. Please return to the emergency department with new, worsening, or concerning emergent symptoms. Recommended to follow-up with your primary care provider in 24-48 hours for further treatment and management. Thank you for choosing [facility]. Prescriptions: New methylprednisolone [Medrol (Lauri)] 4 mg tablets,dose pack 4 mg PO DAILY Qty: 21 0RF oxycodone 5 mg capsule 5 mg PO Q6H PRN (Reason: pain) Qty: 16 0RF Rx Instructions: Partial Fill upon patient request. No Action doxycycline hyclate 100 mg capsule 100 mg PO BID Qty: 20 0RF cephalexin 500 mg capsule 1,000 mg PO BID Qty: 40 0RF doxycycline hyclate 100 mg capsule 100 mg PO BID Qty: 20 0RF pantoprazole 40 mg tablet,delayed release (DR/EC) 40 mg PO DAILY (DME) blood pressure test kit-large Kit See Rx Instructions .ROUTE QAM Qty: 1 Rx Instructions: As directed halobetasol propionate 0.05 % cream topical BID cetirizine 10 mg tablet 10 mg PO DAILY PRN chlorthalidone 25 mg tablet 25 mg PO QAM Referrals: Cheyenne Cruz MD [Primary Care Provider] - Carlos Cross PA [Physician Windows Laptop Technician] - Stand Alone Forms: Work/School Release Interventions: ED Discharge Assessment Last Done: 08/04/23 17:15 Discharge Date/Time: 08/04/23 17:18 Print Language: Albanian
[2023-08-04] MEDS: Morphine Sulfate 2 MG/ML CARTRIDGE IVPUSH (13:17)
[2023-08-04 14:08] VITALS: RESP 15
[2023-08-04] MEDS: HYDROmorphone HCl 0.5 MG/0.5 ML SYRINGE IVPUSH (14:08)
[2023-08-04] MEDS: gadobutroL 10 ML VIAL IVPUSH (14:52)
[2023-08-04 15:16] VITALS: BP 165/98; PULSE 75; RESP 15; O2SAT 97
--- NOTE | 2023-08-04 16:31 | MHC.EDTECH ---
@ 15:42, 1st call placed to [facility] for possible Neuro transfer per provider Sue. @ 16:19, [facility] called back, call transferred to provider. Pt to be followed up outpatient.
[2023-08-04] MEDS: dexAMETHasone sod phosphate 10 MG/ML VIAL IVPUSH (17:04)
[2023-08-04 17:15] VITALS: BP 165/98; PULSE 75; RESP 15; TEMP 37.1; O2SAT 97
== END 2023-08-04 17:18 | disposition home or self-care (01) ==
PROVIDERS: Emergency Provider Student in an Organized Health Care Education/Training Program; PCP General Practice
DX: M51.26 Other intervertebral disc displacement, lumbar region (principal); J45.909 Unspecified asthma, uncomplicated
CPT/HCPCS: 72132; 72158; 96372; 96374; 96375; 96376; 99284; 99285; A9585; J1100; J1170; J1885; J2270

== ENCOUNTER 2023-09-28 10:28 | Emergency (ER) | payer OTHER, SELFPAY ==
--- NOTE | ~2023-09-28 | US_ITS ---
EXAMINATION: US VENOUS ULTRASOUND WITH DOPPLER LOWER EXTREMITY, RIGHT CLINICAL INFORMATION: Pain. Right leg COMPARISON: Ultrasound lower extremity veins dated 01/15/2023. TECHNIQUE: Ultrasound of the deep veins is performed from the hip to the calf with compression sonography and color and pulse Doppler assessment. Spectral analysis with color-flow imaging is performed. FINDINGS: There is normal venous compression and respiratory variation and augmented flow. The visualized common femoral vein, superficial femoral vein, profunda femoral vein, popliteal vein, and the trifurcation region shows no evidence of deep venous thrombosis. There is no significant popliteal fossa cyst. There are multiple enlarged lymph nodes within the right groin. If the patient's symptoms persist, followup ultrasound in 5 days 7 days might be of value to exclude proximal propagation from a non-visualized calf vein. US/US venous duplex LE RT IMPRESSION: No DVT demonstrated in the right lower extremity. Multiple enlarged right groin lymph nodes are incidentally seen.
[2023-09-28 11:16] VITALS: BP 139/79; PULSE 89; RESP 20; TEMP 36.8; O2SAT 97; BMI 40.5
[2023-09-28 12:21] LABS: Basophils Percent Auto 0.1 % (0-2); Hematocrit 42.4 % (42.0-52.0); Hemoglobin 14.7 g/dl (14.0-18.0); Imm Gran Abs Auto 0.05 X10*3/uL (0.00-0.03); Imm Gran Pct Auto 0.3 % (0.0-0.4); Lymphocytes Absolute Auto 0.4 X10*3/uL (1.2-4.9); Lymphocytes Percent Auto 2.9 % (20-40); MANUAL DIFF FLAG SCAN; Mean Corpuscular HGB Conc 34.7 g/dl (31.0-36.0); Mean Corpuscular Hemoglobin 30.9 pg (27.0-33.0); Mean Corpuscular Volume 89.3 fL (80.0-98.0); Mean Platelet Volume 10.6 fL (9.4-12.4); Monocytes Absolute Auto 0.4 X10*3/uL (0.1-1.2); Monocytes Percent Auto 2.4 % (2-11); Neutrophils Absolute Auto 14.4 x10*3/uL (2.0-8.3); Neutrophils Percent Auto 94.3 % (45-73); Platelet Count 210 X10*3/uL (160-400); Red Blood Count 4.75 X10*6/uL (4.60-5.80); Red Cell Distribution Width 13.9 % (11.0-16.0); SCAN SMEAR FLAG 1; White Blood Count 15.3 X10*3/uL (4.8-10.8)
[2023-09-28 12:40] LABS: Lactic Acid 1.8 mmol/L (0.5-2.0)
[2023-09-28 12:41] LABS: SLIDE REVIEW VERIFIED
[2023-09-28 12:43] LABS: Alanine Aminotransferase 58 U/L (0-40); Albumin Level 4.1 g/dL (3.5-5.0); Alkaline Phosphatase 68 U/L (39-117); Anion Gap 12 (12-20); Aspartate Amino Transferase 36 U/L (5-37); Bilirubin Direct 0.3 mg/dL (0.0-0.5); Bilirubin Total 0.7 mg/dL (0.0-1.0); Blood Urea Nitrogen 16 mg/dL (9-16); Carbon Dioxide 25 mmol/L (22-29); Chloride 107 mmol/L (96-108); Creatinine Clr Calc Pharmacy 187.5; Estimated Glomerular Filt Rate > 60; Glucose Random 136 mg/dL (60-115); Potassium 4.3 mmol/L (3.3-5.1); Sodium 140 mmol/L (135-145); Total Protein 7.7 g/dL (6.5-8.0)
--- NOTE | 2023-09-28 15:25 | ED_ITS ---
HPI - Skin/Abscess/Foreign Bdy General Chief complaint: Skin/Abscess/Foreign Body Stated complaint: swelling in legs Time Seen by Provider: 09/28/23 18:28 Source: patient Mode of arrival: ambulatory Limitations: no limitations History of Present Illness ED Provider: ELEN CASE narrative: 38 yo male with PMH of psoriasis but not on any immunosuppressants notes every year when he goes back into the water or the river he gets a rash on his legs. He has never had to be hospitalized. He notes it starts as pink then becomes more purple and painful. He was seen at urgent care yesterday had line drawn on leg and was given cephalexin and prednisone. He came in as the purple dots went above the line drawn complaint: rash Onset (ago): day(s) (1) Tetanus up to date: yes Location: RLE Severity: moderate Quality: burning Pain Consistency: intermittent Relieving factors: none Exacerbating factors: palpation Context: other (hx of same in past when he goes into the water) Associated symptoms: fever Treatments prior to arrival: other (prednisone and cephalexin x 1 day) Related Data Home Medications ?Medication ?Instructions ?Recorded ?Confirmed blood pressure test kit-large #1 ea 11/30/22 11/30/22 cetirizine 10 mg tablet 10 mg PO DAILY PRN 11/30/22 11/30/22 chlorthalidone 25 mg tablet 25 mg PO QAM 11/30/22 11/30/22 halobetasol propionate 0.05 % appl topical BID 11/30/22 11/30/22 topical cream pantoprazole 40 mg tablet,delayed 40 mg PO DAILY 11/30/22 11/30/22 release Previous Rx's ?Medication ?Instructions ?Recorded doxycycline hyclate 100 mg capsule 100 mg PO BID #20 caps 03/07/21 cephalexin 500 mg capsule 1,000 mg (2 x 500 mg) PO BID #40 10/04/22 caps doxycycline hyclate 100 mg capsule 100 mg PO BID #20 caps 10/04/22 methylprednisolone 4 mg tablets in 4 mg PO DAILY #21 ea 08/04/23 a dose pack (Medrol (Lauri)) oxycodone 5 mg capsule 5 mg PO Q6H PRN pain #16 caps 08/04/23 doxycycline hyclate 100 mg capsule 100 mg PO BID 7 days #14 caps 09/28/23 Allergies Allergy/AdvReac Type Severity Reaction Status Date / Time No Known Allergies Allergy Verified 09/28/23 11:19 Review of Systems 2 Review of Systems: Constitutional : pos Fever, No Chills ENT/Mouth : No sore throat, No Rhinorrhea Eyes: No Eye Pain, No Swelling, No Redness Cardiovascular : No Chest Pain, No SOB Respiratory : No Cough, No Sputum Gastrointestinal : No Nausea, No Vomiting, No Diarrhea, No abdominal Pain Genitourinary : No Dysuria, No Hematuria Musculoskeletal : No joint pain, No Myalgias, No Joint Swelling Skin : No Skin Lesions, positive skin rash Neuro : No Weakness, No Numbness, No Headache Psych : No Anxiety, No Depression All other systems reviewed and are negative [facility] Past Medical History Attestation statement: The following information was validated with the patient. Source: old records reviewed Medical History Asthma Gastric reflux Psoriasis Family History Family History Brother Breast cancer Social History Social History Alcohol intake: current Alcohol intake frequency: 0-2 drinks per day Alcohol type: beer, wine and hard liquor Patient Tobacco Use Status: Former Tobacco user Smoked in Last 30 Days: Yes Use of substances other than those prescribed or required for medical reasons: No Advance Directives: No Advance Directives Information Provided: No Physical Exam 2 Vital Signs: Vital Signs: Last Vital Signs Temp 98.2 F 09/28/23 18:27 Pulse 76 09/28/23 18:27 Resp 18 09/28/23 18:27 BP 140/88 H 09/28/23 18:27 Pulse Ox 97 09/28/23 18:27 O2 Del Method Room Air 09/28/23 18:27 BMI result Body Mass Index 40.5 Appearance: Alert. Oriented X3. No acute distress. Eyes: Pupils equal, round and reactive to light. ENT: Pharynx normal. Neck: Normal inspection. Neck supple. CVS: Normal heart rate and rhythm. Pulses normal. Respiratory: No respiratory distress. Breath sounds normal. Abdomen: Soft and nontender. Skin: Skin warm and dry. Normal skin color. Normal skin turgor. Extremities: No lower extremity edema. R leg there is a purplish dots along lacy red rash but no warmth noted it appears more consistent with vasculitis. Neuro: Oriented X 3. No motor deficit. No sensory deficit. Course Course Course Narrative: This is an RME: Additional HPI, ROS, PE not included below will be deferred to primary provider. RME assessment and note performed by: Dai Jain PA-C This is a [id number], with a hx psoriasis, who presents to the ER with complaints of bilateral lower extremity redness, swelling, and pain. Was seen at urgent care and was started on antibiotics which he has been taking and states that the outlined region has spread beyond. Endorsing fevers and chills. Plan: Labs, ultrasound, further ER evaluation needed. Medications Administered Discontinued Medications Generic Name Dose Route Start Last Admin Trade Name Freq PRN Reason Stop Dose Admin Piperacillin Sod/Tazobactam 50 mls @ 100 mls/hr 09/28/23 18:34 09/28/23 18:46 Sod 3.375 gm/ Sodium Chloride IV 09/28/23 19:03 100 mls/hr ONCE ONE Administration Medical Decision Making Medical Decision Making [facility] Narrative: 38 yo male with PMH of psoriasis but not on joann medications here with c/o rash to right leg he gets yearly after going into the water no prior need for IV antibiotics or admission clinically it looks more like vasculitis - at this time not toxic will continue prednisone/cephalexin and start on doxy. Overall not toxic. Differential Diagnosis Differential Diagnoses: The differential diagnosis associated with the presentation includes vasculitis, cellulitis Admission/Observation Consideration of admission/observation: Escalation of care including admission/observation considered afebrile here, WBC count due to prednisone at this time will continue outpatient course of steroids and antibiotics refer to PCP Lab Data [facility] Lab Attestation statement: I reviewed the patient's lab results. 09/28/23 12:12 09/28/23 12:12 Labs: Lab Results 09/28/23 09/28/23 Range/Units 12:12 16:46 WBC 15.3 H (4.8-10.8) X10*3/uL RBC 4.75 (4.60-5.80) X10*6/uL Hgb 14.7 (14.0-18.0) g/dl Hct 42.4 (42.0-52.0) % MCV 89.3 (80.0-98.0) fL MCH 30.9 (27.0-33.0) pg MCHC 34.7 (31.0-36.0) g/dl RDW 13.9 (11.0-16.0) % Plt Count 210 (160-400) X10*3/uL MPV 10.6 (9.4-12.4) fL Immature Gran % (Auto) 0.3 (0.0-0.4) % Neut % (Auto) 94.3 H (45-73) % Lymph % (Auto) 2.9 L (20-40) % [place] % (Auto) 2.4 (2-11) % Eos % (Auto) 0.0 (0-4) % Baso % (Auto) 0.1 (0-2) % Lymph # (Auto) 0.4 L (1.2-4.9) X10*3/uL [place] # (Auto) 0.4 (0.1-1.2) X10*3/uL Eos # (Auto) 0.0 (0.0-0.4) X10*3/uL Baso # (Auto) 0.0 (0.0-0.2) X10*3/uL Abs Immat Gran (auto) 0.05 H (0.00-0.03) X10*3/uL Absolute Neuts (auto) 14.4 H (2.0-8.3) x10*3/uL Absolute Nucleated RBC 0.000 (0.0-0.012) X10*3/uL Nucleated RBC % (auto) 0.0 (0.0-0.2) /100WBC Smear Tech's Comments VERIFIED PT 13.9 H (11.1-13.3) SEC INR 1.1 (0.9-1.1) APTT 28.9 (26.0-36.8) SEC Sodium 140 (135-145) mmol/L Potassium 4.3 (3.3-5.1) mmol/L Chloride 107 (96-108) mmol/L Carbon Dioxide 25 (22-29) mmol/L Anion Gap 12 (12-20) BUN 16 (9-16) mg/dL Creatinine 0.79 (0.5-1.4) mg/dL Estim Creat Clear Calc 187.5 Estimated GFR > 60 Random Glucose 136 H (60-115) mg/dL Lactic Acid 1.8 (0.5-2.0) mmol/L Calcium 10.0 D (8.4-10.2) mg/dL Total Bilirubin 0.7 (0.0-1.0) mg/dL Direct Bilirubin 0.3 (0.0-0.5) mg/dL AST 36 (5-37) U/L ALT 58 H (0-40) U/L Alkaline Phosphatase 68 (39-117) U/L Total Protein 7.7 (6.5-8.0) g/dL Albumin 4.1 (3.5-5.0) g/dL Independent Interpretation I performed an independent interpretation of an: Ultrasound (no DVT) Radiology Impression Discussion of test interpretation with radiology: I have reviewed the radiologist's reading. External Record Review External record reviewed: Inpatient record Prescription Management I considered prescription management with: Antibiotic and Other Discharge Plan Discharge Clinical Impression: Vasculitis Patient Disposition: Home, Self-Care Instructions: Cellulitis (ED) Additional Instructions: return for redness or fevers/redness that goes up to the knee as discussed. continue cephalexin and prednisone On doxycycline, do not take pills immediately before going to bed and swallow pills with plenty of water. Avoid direct sunlight, iron, antacids, and Pepto Bismol. Call your provider if you develop new ringing in your ears, new problems hearing, dizziness, difficulty swallowing, rash, abdominal discomfort, nausea, or diarrhea.? Prescriptions: New doxycycline hyclate 100 mg capsule 100 mg PO BID 7 Days Qty: 14 0RF No Action doxycycline hyclate 100 mg capsule 100 mg PO BID Qty: 20 0RF cephalexin 500 mg capsule 1,000 mg PO BID Qty: 40 0RF doxycycline hyclate 100 mg capsule 100 mg PO BID Qty: 20 0RF methylprednisolone [Medrol (Lauri)] 4 mg tablets,dose pack 4 mg PO DAILY Qty: 21 0RF oxycodone 5 mg capsule 5 mg PO Q6H PRN (Reason: pain) Qty: 16 0RF Rx Instructions: Partial Fill upon patient request. pantoprazole 40 mg tablet,delayed release (DR/EC) 40 mg PO DAILY (DME) blood pressure test kit-large Kit See Rx Instructions .ROUTE QAM Qty: 1 Rx Instructions: As directed halobetasol propionate 0.05 % cream topical BID cetirizine 10 mg tablet 10 mg PO DAILY PRN chlorthalidone 25 mg tablet 25 mg PO QAM Print Language: Upper Sorbian
[2023-09-28 15:28] VITALS: BP 148/117; PULSE 86; RESP 20; TEMP 36.3; O2SAT 96
[2023-09-28 17:09] LABS: INTERNATIONAL NORM RATIO 1.1 (0.9-1.1); Prothrombin Time 13.9 SEC (11.1-13.3)
[2023-09-28 17:12] LABS: Partial Thromboplastin Time 28.9 SEC (26.0-36.8)
[2023-09-28 18:27] VITALS: BP 140/88; PULSE 76; RESP 18; TEMP 36.8; O2SAT 97
--- NOTE | 2023-09-28 18:45 | MHC.EDTECH ---
Patient requested food and liquids, given liquids and sandwich.
[2023-09-28] MEDS: Piperacillin Sodium/Tazobactam 3.375 GM in 0.9 % Sodium Chloride 50 ML IV (18:46)
[2023-09-28 19:57] VITALS: BP 127/74; PULSE 80; RESP 18; TEMP 36.7; O2SAT 98
[2023-09-28 20:02] VITALS: BP 127/74; PULSE 80; RESP 18; TEMP 36.7; O2SAT 98
== END 2023-09-28 20:02 | disposition home or self-care (01) ==
PROVIDERS: Physician Assistant Medical; Emergency Provider Emergency Medicine
DX: I77.6 Arteritis, unspecified (principal); R21 Rash and other nonspecific skin eruption; M79.605 Pain in left leg; M79.604 Pain in right leg; M79.89 Other specified soft tissue disorders; L40.9 Psoriasis, unspecified; J45.909 Unspecified asthma, uncomplicated; Z79.899 Other long term (current) drug therapy
CPT/HCPCS: 36415; 80048; 80076; 83605; 85025; 85610; 85730; 87040; 93971; 96365; 99284; J2543

== ENCOUNTER → 2024-02-25 20:30 | Outpatient (REF) | payer OTHER, SELFPAY | LOC: HO.SL 20:30 | PROVIDERS: PCP General Practice; Visit Provider General Practice | DX: G47.33 Obstructive sleep apnea (adult) (pediatric) (principal); R06.83 Snoring | CPT/HCPCS: 95810 ==

== ENCOUNTER → 2024-02-25 20:30 | Outpatient (BNV) | payer OTHER, SELFPAY | PROVIDERS: PCP General Practice; Visit Provider Internal Medicine | DX: G47.33 Obstructive sleep apnea (adult) (pediatric) (principal) | CPT/HCPCS: 95810 ==

== ENCOUNTER 2024-05-21 14:06 | Emergency (ER) | payer OTHER, SELFPAY ==
--- NOTE | ~2024-05-21 | CT_ITS ---
CLINICAL HISTORY: Left nostril mass? deviated septum? CT maxillofacial without contrast Comparison: None Findings: Complete occlusion of the left nasal cavity and left maxillary sinus. Partial occlusion of the tglp-rjgvmta-ashz-right mastoid air cells. Left maxillary sinus opacification essentially hyperdense suggesting fungal sinusitis. Left maxillary sinus wall thickening and sclerosis indicative of chronicity. Sphenoid sinuses and frontal sinuses are clear. No mastoid air cell effusion. No destructive bony changes or acute fracture. Minimal deviation of the bony nasal septum to the right. Orbital structures normal. IMPRESSION: Incomplete opacification of the left nasal cavity and left maxillary sinus as well as opacification of the kaot-tzrnfig-rmbw-right ethmoid air cells. Central hyperdense appearance of the left maxillary sinus opacification suggest chronic fungal sinusitis. This document has been electronically signed by: Raghu Ventura MD on 05/21/2024 19:13:46
[2024-05-21 14:35] VITALS: BP 153/83; PULSE 88; RESP 18; TEMP 37.1; O2SAT 96; BMI 36.9
--- NOTE | 2024-05-21 14:36 | ED.GENADULT ---
HPI - General Adult General Chief complaint: Upper Respiratory Symptoms Stated complaint: Cold Symptoms Eye Pain Time Seen by Provider: 05/21/24 17:42 History of Present Illness HPI narrative: Patient with history of chronic sinusitis and nasal blockages complains that yesterday he noticed a white mass in the left nostril, he has had no trauma and does have some accompanying mild pain in the left orbit and left side of his upper face, but denies any redness or rash or discharge from the nose, no fever No headache no eye pain no vision change no sore throat no chest pain no shortness of breath no cough Related Data Home Medications ?Medication ?Instructions ?Recorded ?Confirmed blood pressure test kit-large #1 ea 11/30/22 11/30/22 cetirizine 10 mg tablet 10 mg PO DAILY PRN 11/30/22 11/30/22 chlorthalidone 25 mg tablet 25 mg PO QAM 11/30/22 11/30/22 halobetasol propionate 0.05 % appl topical BID 11/30/22 11/30/22 topical cream pantoprazole 40 mg tablet,delayed 40 mg PO DAILY 11/30/22 11/30/22 release Previous Rx's ?Medication ?Instructions ?Recorded doxycycline hyclate 100 mg capsule 100 mg PO BID #20 caps 03/07/21 cephalexin 500 mg capsule 1,000 mg (2 x 500 mg) PO BID #40 10/04/22 caps doxycycline hyclate 100 mg capsule 100 mg PO BID #20 caps 10/04/22 methylprednisolone 4 mg tablets in 4 mg PO DAILY #21 ea 08/04/23 a dose pack (Medrol (Lauri)) oxycodone 5 mg capsule 5 mg PO Q6H PRN pain #16 caps 08/04/23 doxycycline hyclate 100 mg capsule 100 mg PO BID 7 days #14 caps 09/28/23 Allergies Allergy/AdvReac Type Severity Reaction Status Date / Time No Known Allergies Allergy Verified 05/21/24 14:37 [facility] Past Medical History Source: nursing notes reviewed Medical History Asthma Gastric reflux Psoriasis Family History Family History Brother Breast cancer Social History Social History Alcohol intake: current Alcohol intake frequency: 0-2 drinks per day Alcohol type: beer, wine and hard liquor Patient Tobacco Use Status: Former Tobacco user Advance Directives: No Advance Directives Information Provided: No Do you have a plan to hurt others: No Plan Physical Exam ED Vital Signs: Vital Signs - 24 hr 05/21/24 14:35 05/21/24 17:48 05/21/24 20:12 Temperature 98.8 F 97.8 F 98.2 F Pulse Rate 88 63 66 Respiratory Rate 18 15 18 Blood Pressure 153/83 H 148/85 H 161/77 H Pulse Oximetry 96 94 96 Oxygen Delivery Method Room Air Room Air Room Air BMI result Body Mass Index 36.9 General appearance no acute distress, the patient breathe through his mouth and is very congested Eyes no redness or discharge, no significant redness around the left orbit, pupils equal round reactive to light and extraocular motions are intact The nose there is an obvious white mass in the left nostril, but otherwise no nasal discharge no significant sinus tenderness no obvious swelling no abscess Pharynx is clear without redness swelling or exudate Neck is supple The ears are clear no redness or bulging Chest is clear to auscultation bilateral with full symmetrical equal breath sounds Heart no murmur Abdomen soft nontender Extremities full range of motion x4 Course Course Course Narrative: RME, this is a rapid medical exam performed by Michael Dallas please refer to primary provider for complete H&P- 39-year-old male presents for evaluation of left-sided facial pain and congestion. He reports this is a chronic issue and he is due to see a surgeon in 2 months for this. He has not been on any antibiotics recently. He has pain below his left eye and facial swelling. Plan for viral swabs and strep swab. Viral and strep swabs were negative Patient is here for the mass in the left nostril , case was discussed with Dr. Thakur who advised noncontrast CT At 19:00 case is signed out to physician special events assistant Gail to follow CT results Reevaluation(s) Reevaluation #1: I Madhavi Cooley PA-C have accepted care of the patient and signed out pending imaging and final disposition CT face:Complete occlusion of the left nasal cavity and left maxillary sinus. Partial occlusion of the ynnk-ryscrnk-sksl-right mastoid air cells. Left maxillary sinus opacification essentially hyperdense suggesting fungal sinusitis. Left maxillary sinus wall thickening and sclerosis indicative of chronicity. Sphenoid sinuses and frontal sinuses are clear. No mastoid air cell effusion. No destructive bony changes or acute fracture. Minimal deviation of the bony nasal septum to the right. Orbital structures normal. IMPRESSION: Incomplete opacification of the left nasal cavity and left maxillary sinus as well as opacification of the prza-ottitax-zshf-right ethmoid air cells. Central hyperdense appearance of the left maxillary sinus opacification suggest chronic fungal sinusitis. This document has been electronically signed by: Raghu Ventura MD on 05/21/2024 19:13:46 Dictated By: Raghu Ventura MD Signed By: <Electronically signed by Raghu Ventura MD in [place]> 05/21/241914 Medical Decision Making Lab Data 05/21/24 16:22 05/21/24 16:22 Labs: Lab Results 05/21/24 Range/Units 16:22 WBC 5.0 (4.8-10.8) X10*3/uL RBC 4.42 L (4.60-5.80) X10*6/uL Hgb 13.4 L (14.0-18.0) g/dl Hct 39.4 L (42.0-52.0) % MCV 89.1 (80.0-98.0) fL MCH 30.3 (27.0-33.0) pg MCHC 34.0 (31.0-36.0) g/dl RDW 12.9 (11.0-16.0) % Plt Count 210 (160-400) X10*3/uL MPV 9.9 (9.4-12.4) fL Immature Gran % (Auto) 0.2 (0.0-0.4) % Neut % (Auto) 68.5 (45-73) % Lymph % (Auto) 21.4 (20-40) % [place] % (Auto) 8.7 (2-11) % Eos % (Auto) 0.8 (0-4) % Baso % (Auto) 0.4 (0-2) % Lymph # (Auto) 1.1 L (1.2-4.9) X10*3/uL [place] # (Auto) 0.4 (0.1-1.2) X10*3/uL Eos # (Auto) 0.0 (0.0-0.4) X10*3/uL Baso # (Auto) 0.0 (0.0-0.2) X10*3/uL Abs Immat Gran (auto) 0.01 (0.00-0.03) X10*3/uL Absolute Neuts (auto) 3.4 (2.0-8.3) x10*3/uL Absolute Nucleated RBC 0.000 (0.0-0.012) X10*3/uL Nucleated RBC % (auto) 0.0 (0.0-0.2) /100WBC Sodium 145 (135-145) mmol/L Potassium 3.9 (3.3-5.1) mmol/L Chloride 106 (96-108) mmol/L Carbon Dioxide 31 H (22-29) mmol/L Anion Gap 12 (12-20) BUN 16 (9-16) mg/dL Creatinine 0.86 (0.5-1.4) mg/dL Estim Creat Clear Calc 162.6 Estimated GFR > 60 Random Glucose 131 H (60-115) mg/dL Calcium 9.5 (8.4-10.2) mg/dL Influenza Type A (PCR) NEGATIVE (Negative) Influenza Type B (PCR) NEGATIVE (Negative) RSV RNA Qual (PCR) NEGATIVE (Negative) SARS-CoV-2 RNA (RT-PCR) NEGATIVE (Negative) S. pyogenes GrpA LINUS Negative (Negative) Discharge Plan Discharge Clinical Impression: Nasal mass, Fungal sinusitis Patient Disposition: Home, Self-Care Instructions: Sinusitis (ED) Additional Instructions: You were found to have chronic fungal sinusitis. Call your ENT specialist tomorrow, you need to be seen sooner rather than later. I am also providing you with a contact for our infectious disease provider, you may require their consult as well. Do not use any nasal sprays that contain steroid. You can use saline nasal sprays. You could also try [id number] Mucinex, to help with your excessive secretions. Prescriptions: No Action doxycycline hyclate 100 mg capsule 100 mg PO BID Qty: 20 0RF cephalexin 500 mg capsule 1,000 mg PO BID Qty: 40 0RF doxycycline hyclate 100 mg capsule 100 mg PO BID Qty: 20 0RF methylprednisolone [Medrol (Lauri)] 4 mg tablets,dose pack 4 mg PO DAILY Qty: 21 0RF oxycodone 5 mg capsule 5 mg PO Q6H PRN (Reason: pain) Qty: 16 0RF Rx Instructions: Partial Fill upon patient request. doxycycline hyclate 100 mg capsule 100 mg PO BID 7 Days Qty: 14 0RF pantoprazole 40 mg tablet,delayed release (DR/EC) 40 mg PO DAILY (DME) blood pressure test kit-large Kit See Rx Instructions .ROUTE QAM Qty: 1 Rx Instructions: As directed halobetasol propionate 0.05 % cream topical BID cetirizine 10 mg tablet 10 mg PO DAILY PRN chlorthalidone 25 mg tablet 25 mg PO QAM Referrals: Sophia Albright MD [Physician] - (chronic fungal sinusitis, just found on CT) Print Language: Com[place]an
[2024-05-21 16:26] LABS: MANUAL DIFF FLAG NO
[2024-05-21 16:31] LABS: Basophils Percent Auto 0.4 % (0-2); Eosinophils Percent Auto 0.8 % (0-4); Hematocrit 39.4 % (42.0-52.0); Hemoglobin 13.4 g/dl (14.0-18.0); Imm Gran Abs Auto 0.01 X10*3/uL (0.00-0.03); Imm Gran Pct Auto 0.2 % (0.0-0.4); Lymphocytes Absolute Auto 1.1 X10*3/uL (1.2-4.9); Lymphocytes Percent Auto 21.4 % (20-40); Mean Corpuscular Hemoglobin 30.3 pg (27.0-33.0); Mean Corpuscular Volume 89.1 fL (80.0-98.0); Mean Platelet Volume 9.9 fL (9.4-12.4); Monocytes Absolute Auto 0.4 X10*3/uL (0.1-1.2); Monocytes Percent Auto 8.7 % (2-11); Neutrophils Absolute Auto 3.4 x10*3/uL (2.0-8.3); Neutrophils Percent Auto 68.5 % (45-73); Platelet Count 210 X10*3/uL (160-400); Red Blood Count 4.42 X10*6/uL (4.60-5.80); Red Cell Distribution Width 12.9 % (11.0-16.0)
[2024-05-21 16:40] LABS: Anion Gap 12 (12-20); Blood Urea Nitrogen 16 mg/dL (9-16); Calcium 9.5 mg/dL (8.4-10.2); Carbon Dioxide 31 mmol/L (22-29); Chloride 106 mmol/L (96-108); Creatinine Clr Calc Pharmacy 162.6; Estimated Glomerular Filt Rate > 60; Glucose Random 131 mg/dL (60-115); Potassium 3.9 mmol/L (3.3-5.1); Sodium 145 mmol/L (135-145)
[2024-05-21 16:49] LABS: IDNOW Serial# 58CA691E; Strep A Nucleic Acid Negative (Negative)
[2024-05-21 17:06] LABS: Influenza A PCR NEGATIVE (Negative); Influenza B PCR NEGATIVE (Negative); Resp Syncy Virus RNA Qual PCR NEGATIVE (Negative); SARS COV2 PCR INHOUSE NEGATIVE (Negative)
[2024-05-21 17:48] VITALS: BP 148/85; PULSE 63; RESP 15; TEMP 36.6; O2SAT 94
[2024-05-21 20:12] VITALS: BP 161/77; PULSE 66; RESP 18; TEMP 36.8; O2SAT 96
[2024-05-21 21:21] VITALS: BP 161/77; PULSE 66; RESP 18; TEMP 36.8; O2SAT 96
== END 2024-05-21 21:21 | disposition home or self-care (01) ==
PROVIDERS: Physician Assistant; Emergency Provider Emergency Medicine
DX: J32.8 Other chronic sinusitis (principal); J34.89 Other specified disorders of nose and nasal sinuses; R22.0 Localized swelling, mass and lump, head; Z79.899 Other long term (current) drug therapy; Z03.818 Encounter for observation for suspected exposure to other biological agents ruled out; Z87.891 Personal history of nicotine dependence
CPT/HCPCS: 0241U; 36415; 70486; 80048; 85025; 87651; 99283; 99284

== ENCOUNTER → 2024-05-21 18:13 | Outpatient (BNV) | payer OTHER, SELFPAY | PROVIDERS: Emergency Provider Emergency Medicine; Visit Provider Radiology Diagnostic Radiology | DX: J32.9 Chronic sinusitis, unspecified (principal) | CPT/HCPCS: 70486 ==

== ENCOUNTER 2024-06-18 15:30 | Outpatient (REF) | payer OTHER, SELFPAY ==
--- OUTSIDE RECORDS SUMMARY | 2024-06-18 16:20 | XMS_ITS | Encounter Summary ---
Author Organization [employer] Address [address] [address] [facility] [facility] [address] [place] [address] Care Team Providers Care Crushing Mill Operator Name Role Phone Cheyenne Cruz MD Primary Care Provider [phone] Reason for Visit * Reason Onset Date Comments [facility] triage 05/23/2024 Encounter Details Date Type Department Care Team ([facility] st Contact Info) Description 05/23/2024 Telephone [facility] [address] [place], [place] [phone] Shanna Dawkins, MARANDA [facility] triage Social History Tobacco Use Types Packs/Day Years Used Date Smoking Tobacco: Some Days Cigarettes 0.3 2.2 Started: 04/06/2022 Smokeless Tobacco: Former Alcohol Use Standard Drinks/Week Comments Yes 0 (1 standard drink = 0.6 oz pur e alcohol) Alcohol Answer Date Recorded How often do you have a drink containing alcohol ? 3 04/12/2022 How many drinks containing a lcohol do you have on a typical day when you are drinking? 3 04/12/2022 How often do you have six or more drinks on one occasion? 4 04/12/2022 Housing Stability Answer Date Recorded What is your housing situation today? I have aleshia monge 03/12/[address] you li ve. Do you have problems with any of the following? None of the above 03/12/2023 Food Insecurity Answer Date Recorded Within the past 12 months, y ou worried that your food would run out before you got money to buy more: Never True 03/12/2023 Within the past 12 months,th e food you bought just didn't last and you didn't have enough money to get more: Never True 11/ 10/2022 Transportation Answer Date Recorded In the past 12 months, has l ack of transportation kept you from medical appts, meetings, work or from getting things needed for daily living? Yes, it has kept me from non-medical meetings, work, or getting things that I need 02/11/2023 Utilities Answer Date Recorded In the past 12 months, has t he electric, gas, oil or water company threatened to shut off services in your home? No 03/12/2023 Depression Answer Date Recorded Patient Health Questionnaire-2 Score 0 04/12/2022 Sex and Gender Information Value Date Recorded Sex Assigned at Male 03/06/2022 10:16 AM EDT Legal Sex Male 10:16 AM EDT Gender Identity Male 03/06/2022 10:16 AM EDT Sexual Orientation Straight 03/06/2022 10 :16 AM EDT documented as of this encounter Miscellaneous Notes * Telephone Encounter - Shanna Dawkins RN - 05/23/2024 9:36 AM EST Pt presents to [facility] requesting a STAT referral to [facility] @[phone] He was seen at [facility] 05/21/24 and Dx: Nasal mass, chronic fungal sinusitis * found on CT He states he has been suffering for a year. He was also referred by [facility] to Dr Albright ID @ [phone] for same. He states he was told [facility] could see him today with a stat referral. Call placed to ENT to confirm, information faxed to stat referral # [phone] *Pt's name at [facility] is:Tobi Costa PCP listed there is Rashida Vargas sent stat referral and it was approved documented in this encounter Plan of Treatment Not on file documented as of this encounter Visit Diagnoses Not on filedocumented in this encounter Care Teams Crushing Mill Operator Relationship Specialty Start Date End Date Cheyenne Cruz MD [address] [place] [address] PCP - General Family Medicine 11/04/21 documented as of this encounter
--- OUTSIDE RECORDS SUMMARY | 2024-06-18 16:20 | XMS_ITS | Encounter Summary ---
Author Organization [employer] Address [address] [facility] [address] [place] [address] Care Team Providers Care Weather Analyst Name Role Phone Cheyenne Cruz MD Primary Care Provider Reason for Visit * Reason Onset Date Comments 05/21/24 [facility] CT 05/23/2024 Encounter Details Date Type Department Care Team (Late st Contact Info) Description 05/23/2024 Telephone [facility] [address] [place] [address] Shanna Dawkins, MARANDA 05/21/24 [facility] CT Social History Tobacco Use Types Packs/Day Years [...] is your housing situation today? I have aleshialilliana monge 03/12/[address] you [...] enough money to get more: Never True 10/2022 Transportation Answer Date Recorded In the [...] Encounter - Shanna Dawkins RN - 05/23/2024 9:50 AM EST [place] [address] CT Scan Report Signed Patient: Tobi Florentino MR#: [id number] : 1985 Acct:[id number] Age/Sex: 39 / M ADM Date: 05/21/24 Loc: .ED Attending Dr: Ordering Physician: Ceasar Mike Date of Service: 05/21/24 Procedure(s): CT facial bones wo IV con Accession Number(s): [id number] cc: [facility]; Ceasar Mike~ Report Number: [id number]: Total DLP = 534.00 mGy-cm CLINICAL HISTORY: Left nostril mass? deviated septum? CT maxillofacial without contrast Comparison: None Findings: Complete occlusion of the left nasal cavity and left maxillary sinus. Partial occlusion of the ggvx-zjzswqe-lmye-right mastoid air cells. Left maxillary sinus opacification essentially hyperdense suggesting fungal sinusitis. Left maxillary sinus wall thickening and sclerosis indicative of chronicity. Sphenoid sinuses and frontal sinuses are clear. No mastoid air cell effusion. No destructive bony changes or acute fracture. Minimal deviation of the bony nasal septum to the right. Orbital structures normal. IMPRESSION: Incomplete opacification of the left nasal cavity and left maxillary sinus as well as opacification of the jwzy-dxidqzq-yqjj-right ethmoid air cells. Central hyperdense appearance of the left maxillary sinus opacification suggest chronic fungal sinusitis. This document has been electronically signed by: Raghu Ventura MD on 05/21/2024 19:13:46 Dictated By: Raghu Ventura MD Signed By: <Electronically signed by Raghu Ventura MD in OV> 05/21/241914 DD/ 12 TD/TT: 05/21/241912 Ship'S Surveyor: documented in this encounter Plan of Treatment Not on file documented as of this encounter Visit Diagnoses Not on filedocumented in this encounter Care Teams Weather Analyst Relationship Specialty Start Date End Date Cheyenne Cruz MD [address] [place] [address] PCP - General Family Medicine 11/04/21 documented as of this encounter
--- OUTSIDE RECORDS SUMMARY | 2024-06-18 16:20 | XMS_ITS | Encounter Summary ---
Author Organization [employer] [facility] Address [address] [place] [address] 7t [place] [address] Care Team Providers Care Application Support Analyst Name Role Phone Cheyenne Cruz MD Primary Care Provider [phone] Reason for Referral * Imaging (Routine) - Closed Specialty Diagnoses / Procedures Referred By Contmoira lezama Referred To Contact Radiology Diagnoses Lymph node enlargement Procedures US guided biopsy lymph node superficial Miguelina Chase MD [address] [place] [address] Phone: tel: fax: [facility] [address] [place] [address] Phone: tel: fax: Referral ID Status Reason Start Date Expiration Date Visits Re quested Visits Authorized [id number] Closed 11/06/2022 11/06/2023 1 1 Encounter Details Date Type Department Care Team (Late st Contact Info) Description 11/06/2022 Orders Only [facility] [address] [place] [address] Miguelina Chase MD [address] [place] [address] Lymph node enlargement (Primary Dx) Social History Tobacco Use Types Packs/Day Years Used Date Smoking Tobacco: Former Cigarettes 0.3 2.2 S tarted: 04/06/2022 Smokeless Tobacco: Former Alcohol Use Standard [...] more drinks on one occasion? 4 04/12/2022 Depression Answer Date Recorded Patient Health Questionnaire-2 Score 0 04/12/2022 Sex and Gender Information Value Date Recorded Sex Assigned at Male 03/06/2022 10:16 AM EDT Legal Sex Male 10:16 AM EDT Gender Identity Male 03/06/2022 10:16 AM EDT Sexual Orientation Straight 03/06/2022 10 :16 AM EDT COVID-19 Exposure Response Date Recorded In the last 10 days, have yo u been in contact with someone who was confirmed or suspected to have Coronavirus/COVID-19? No / Unsure 11/09/2022 1:13 PM EDT documented as of this encounter Plan of Treatment Scheduled Orders Name Type Priority Associated Diagnoses Orde r Schedule US guided biopsy lymph node superficial Imaging Routine Lymph node enlargement Expected: 11/06/2022, Expires: 11/07/2023 documented as of this encounter Visit Diagnoses Diagnosis Lymph node enlargement- Primary Enlargement of lymph nodes documented in this encounter Care Teams Application Support Analyst Relationship Specialty Start Date End Date Cheyenne Cruz MD [address] [place] [address] PCP - General Family Medicine 11/04/21 documented as of this encounter
--- OUTSIDE RECORDS SUMMARY | 2024-06-18 16:21 | XMS_ITS | Encounter Summary ---
Author Organization [employer] Address [address] [place] [address] Care Team Providers Care Intranet Developer Name Role Phone Cheyenne Cruz MD Primary Care Provider Encounter Details Date Type Department Care Team (Latest Contact Info) Description 06/18/2024 3:00 PM EST Office Visit [facility] [address] [place], [place] [phone] Cheyenne Cruz MD [address] [place], [place] [phone] Hypertension, unspecified type (Primary Dx); Class 3 severe obesity with serious comorbidity and body mass index (BMI) of 40.0 to 44.9 in adult, unspecified obesity type (CMS/HCC); Dietary counseling; Exercise counseling; Obstructive sleep apnea syndrome; Gastroesophageal reflux disease without esophagitis; Lumbar disc herniation with radiculopathy Social History Tobacco Use Types Packs/Day Years Used Date Smoking Tobacco: Some Days Cigarettes 0.3 2.2 Started: 04/06/2022 Smokeless Tobacco: Former Tobacco Cessation:Ready to Q uit: Not Asked; Counseling Given: Not Answered Alcohol Use Standard Drinks/Week Comments Yes 0 [...] AM EDT documented as of this encounter Last Filed Vital Signs Vital Sign Reading Time Taken Comments Blood Pressure 158/92 06/18/2024 2:56 PM EST Pulse 98 06/18/2024 2:56 PM EST Temperature 36 ??C (96.8 ??F) 06/18/2024 2:56 PM EST Respiratory Rate 20 06/18/2024 2:56 PM EST Oxygen Saturation - - Inhaled Oxygen Concentration - - Weight 146 kg (321 lb 14.4 oz) 06/18/2024 2:56 P M EST Height 185.4 cm (6' 1 ) 06/18/2024 2:56 PM EST Body Mass Index 42.47 06/18/2024 2:56 PM EST documented in this encounter Progress Notes * Cheyenne Cruz MD - 06/18/2024 3:00 PM EST SUBJECTIVE: Tobi Perez is a 39 y.o. year old male who presents for acute visit. Denies recent illness, ER visit, or hospitalization. Acute Concerns: Jun 24, 2024, CPAP needs to be ordered IMPRESSION: Incomplete opacification of the left nasal cavity and left maxillary sinus as well as opacification of the fove-hgovhvr-asqg-right ethmoid air cells. Central hyperdense appearance of the left maxillary sinus opacification suggest chronic fungal sinusitis. This document has been electronically signed by: Raghu Ventura MD on 05/21/2024 19:13:46 Interim Updates: JULITA- stopped using CPAP 9 years ago still has machine, not sleeping well HTN Needs chlorthalidone At home 160s/80s-90s Asthma- using 1-2 puffs as needed, having symptoms at night sometimes once or twice a week GERD- taking Protonix 40mg daily Obesity- wants to work on this Alcohol- drinks few drinks- 8 or 9 Sunday- Sunday every day Tobacco- quit for 3 years, started smoking again last moth, 4 cigs a day SH: unemployed Lives with and 2 of her 4 kids, not hoping to have kids in the next year Latest Reference Range & Units 05/21/24 16:22 Glucose 60 - 115 mg/dL 131 (H) Urea Nitrogen (BUN) 9 - 16 mg/dL 16 Creatinine, Serum 0.5 - 1.4 mg/dL 0.86 Sodium 135 - 145 mmol/L 145 Potassium 3.3 - 5.1 mmol/L 3.9 Chloride 96 - 108 mmol/L 106 Carbon Dioxide 22 - 29 mmol/L 31 (H) Calcium 8.4 - 10.2 mg/dL 9.5 Anion Gap 12 - 20 12 Red Blood Count 4.60 - 5.80 X10*6/uL 4.42 (L) Hemoglobin 14.0 - 18.0 g/dl 13.4 (L) Hematocrit 42.0 - 52.0 % 39.4 (L) Mean Corpuscular Volume 80.0 - 98.0 fL 89.1 Mean Corpuscular Hemoglobin 27.0 - 33.0 pg 30.3 Mean Corpuscular HGB Conc 31.0 - 36.0 g/dl 34.0 Red Cell Distribution Width 11.0 - 16.0 % 12.9 Platelet Count 160 - 400 X10*3/uL 210 Eosinophils Percent Auto 0 - 4 % 0.8 Lymphocytes Absolute Auto 1.2 - 4.9 X10*3/uL 1.1 (L) Basophils Absolute Auto 0.0 - 0.2 X10*3/uL 0.0 Monocytes Absolute Auto 0.1 - 1.2 X10*3/uL 0.4 Neutrophils Absolute Auto 2.0 - 8.3 x10*3/uL 3.4 Neutrophils Percent Auto 45 - 73 % 68.5 Basophils Percent Auto 0 - 2 % 0.4 Eosinophils Absolute Auto 0.0 - 0.4 X10*3/uL 0.0 Lymphocytes Percent Auto 20 - 40 % 21.4 Monocytes Percent Auto 2 - 11 % 8.7 Imm Gran Abs Auto 0.00 - 0.03 X10*3/uL 0.01 Imm Gran Pct Auto 0.0 - 0.4 % 0.2 Creatinine Clr Calc Pharmacy 162.6 Estimated Glomerular Filt Rate >60 IDNOW SERIAL# [id number] Influenza A PCR Negative NEGATIVE Influenza B PCR Negative NEGATIVE Mean Platelet Volume 9.4 - 12.4 fL 9.9 NRBC Abs Auto 0.0 - 0.012 X10*3/uL 0.000 NRBC Pct Auto 0.0 - 0.2 /100WBC 0.0 Resp Syncy Virus RNA Qual PCR Negative NEGATIVE SARS COV2 PCR Negative NEGATIVE SARS COV2/INFLUENZA A/B AND RSV RNA QL NAAT Rpt STREP A NUCLEIC ACID Rpt Strep A Nucleic Acid Negative Negative White Blood Count 4.8 - 10.8 X10*3/uL 5.0 Patient Active Problem List Diagnosis ??? Alcohol abuse ??? Asthma ??? Depressive disorder ??? Edema of lower extremity ??? Gastroesophageal reflux disease ??? Joint pain ??? Class 3 severe obesity with serious comorbidity and body mass index (BMI) of 40.0 to 44.9 in adult, unspecified obesity type (CMS/HCC) ??? Obstructive sleep apnea syndrome ??? Pain in joint involving lower leg ??? Rash ??? Tobacco dependence syndrome ??? Visual impairment ??? Tinnitus ??? Blurry vision ??? Hypertension ??? Lumbar disc herniation with radiculopathy ??? Daytime somnolence ??? Allergic rhinitis ??? Chronic sinusitis ??? Deviated nasal septum ??? Polyp of nasal cavity ??? Polypoid sinus degeneration History reviewed. No pertinent surgical history. No family history on file. Social History Social History Narrative ??? Not on file Review of Systems OBJECTIVE: Vitals: 06/18/24 1456 BP: (!) 158/92 BP Location: Right arm Patient Position: Sitting BP Cuff Size: Adult Pulse: 98 Resp: 20 Temp: 96.8 ??F (36 ??C) TempSrc: Oral Weight: 321 lb 14.4 oz (146 kg) Height: 6' 1 (1.854 m) Physical Exam ASSESSMENT/PLAN Problem List Items Addressed This Visit Gastroesophageal reflux disease Relevant Medications pantoprazole (ProtoNix) 40 MG EC tablet Class 3 severe obesity with serious comorbidity and body mass index (BMI) of 40.0 to 44.9 in adult,unspecified obesity type (CMS/HCC) Relevant Orders Hepatic Function Panel Obstructive sleep apnea syndrome Hypertension - Primary Relevant Medications chlorthalidone (Hygroton) 25 MG tablet olmesartan (Benicar) 5 MG tablet Lumbar disc herniation with radiculopathy Relevant Medications gabapentin (Neurontin) 300 MG capsule Other Visit Diagnoses Elevated blood-pressure reading without diagnosis of hypertension start chlorthalidone 25mg daily Dietary counseling Exercise counseling Follow Up: 3 months or sooner prn No Known Allergies Current Outpatient Medications: ??? albuterol (2.5 MG/3ML) 0.083% nebulizer solution, Inhale 1 ampule every 4 (four) hours if needed. Cough, wheeze, sob, Disp: , Rfl: ??? albuterol 108 (90 Base) MCG/ACT inhaler, Inhale 2 puffs every 4 (four) hours if needed., Disp: , Rfl: ??? Blood Pressure kit, 1 Device Once per day., Disp: 1 kit, Rfl: 0 ??? cetirizine (ZyrTEC) 10 MG tablet, TAKE 1 TABLET BY MOUTH EVERY DAY IF NEEDED, Disp: 90 tablet, Rfl: 3 ??? chlorthalidone (Hygroton) 25 MG tablet, Take 1 tablet (25 mg) by mouth Once per day., Disp: 90 tablet, Rfl: 3 ??? EPINEPHrine (Epipen) 0.3 MG/0.3ML injection syringe, Take 1 auto by injection route for 180 days, for anaphylaxis., Disp: , Rfl: ??? fluticasone furoate (Arnuity Ellipta) 100 MCG/ACT inhaler, Inhale 1 puff Once per day. Rinse mouth with water after use to reduce aftertaste and incidence of candidiasis. Do not swallow., Disp: 1each, Rfl: 11 ??? gabapentin (Neurontin) 300 MG capsule, Take 1 capsule (300 mg) by mouth 3 times daily., Disp: 90 capsule, Rfl: 11 ??? halobetasol (Ultravate) 0.05 % cream, Apply topically 2 times daily., Disp: 50 g, Rfl: 2 ??? Ibuprofen (MOTRIN PO), Take 2 tablets by mouth every 4 (four) hours if needed. Every 4-6 hours as needed with food, Disp: , Rfl: ??? olmesartan (Benicar) 5 MG tablet, Take 1 tablet (5 mg) by mouth Once per day., Disp: 90 tablet,Rfl: 3 ??? pantoprazole (ProtoNix) 40 MG EC tablet, Take 1 tablet (40 mg) by mouth Once per day. Do not crush, chew, or split., Disp: 90 tablet, Rfl: 3 Belarusian Translation: Provided by [facility] staff member MERLE Corcoran documented in this encounter Plan of Treatment Scheduled Orders Name Type Priority Associated Diagnoses Orde r Schedule Hepatic Function Panel Lab Routine Class 3 severe obesity with serious comorbidity and body mass index (BMI) of 40.0 to 44.9 in adult, unspecified obesity type (CMS/HCC) Expected: 06/18/2024 (Approximate), Expires: 06/18/2025 Hemoglobin A1c Lab Routine Class 3 severe obesity with serious comorbidity and body mass index (BMI) of 40.0 to 44.9 in adult, unspecified obesity type (CMS/HCC) Expected: 06/18/2024 (Approximate), Expires: 06/18/2025 documented as of this encounter Visit Diagnoses Diagnosis Hypertension, unspecified type- Primary Class 3 severe obesity with serious comorbidity and body mass index (BMI) of 40.0 to 44.9 in adult, unspecified obesity type (CMS/HCC) Dietary counseling Dietary surveillance and counseling Exercise counseling Obstructive sleep apnea syndrome Obstructive sleep apnea (adult) (pediatric) Gastroesophageal reflux disease without esophagitis Esophageal reflux Lumbar disc herniation with radiculopathy Displacement of lumbar intervertebral disc without myelopathy documented in this encounter Care Teams Intranet Developer Relationship Specialty Start Date End Date Cheyenne Cruz MD [address] [place] [address] PCP - General Family Medicine 11/04/21 documented as of this encounter
--- OUTSIDE RECORDS SUMMARY | 2024-06-18 16:21 | XMS_ITS | Encounter Summary ---
Author Organization [employer] Address [address] [facility] 7t [place] [address] Care Team Providers Care Clinical Informaticist Name Role Phone Cheyenne Cruz MD Primary Care Provider [phone] Reason for Visit * Reason Onset Date Comments Med Refill 08/30/2023 Encounter Details Date Type Department Care Team ([facility] st Contact Info) Description 08/30/2023 Telephone [facility] [address] [place], [place] [phone] Cheyenne Cruz MD [address] [place], [place] [phone] Med Refill Social History Tobacco Use Types Packs/Day Years [...] encounter Miscellaneous Notes * Telephone Encounter - Luly Stapleton LPN - 08/30/2023 10:28 AM EDT Medication to [facility] for refill script was sent on 04/02/23 #90 with 1 refill. * Telephone Encounter - Lc Raphael - 08/30/2023 10:23 AM EDT Tc from pt requesting a refill for pantoprazole (ProtoNix) 40 MG EC tablet documented in this encounter Plan of Treatment Not on file documented as of this encounter Visit Diagnoses Not on filedocumented in this encounter Care Teams Clinical Informaticist Relationship Specialty Start Date End Date Cheyenne Cruz MD [address] [place] [address] PCP - General Family Medicine 11/04/21 documented as of this encounter
--- OUTSIDE RECORDS SUMMARY | 2024-06-18 16:21 | XMS_ITS | Encounter Summary ---
Author Organization [facility] Address [address] [facility] [address]t [place] [address] Care Team Providers Care Wind Turbine Erector Name Role Phone Cheyenne Cruz MD Primary Care Provider [phone] Encounter Details Date Type Department Care Team (Latest Contact Info) Description 06/18/2024 Travel Social History Tobacco Use Types Packs/Day Years [...] AM EDT documented as of this encounter Plan of Treatment Not on file documented as of this encounter Visit Diagnoses Not on filedocumented in this encounter Care Teams Wind Turbine Erector Relationship Specialty Start Date End Date Cheyenne Cruz MD [address] [place] [address] PCP - General Family Medicine 11/04/21 documented as of this encounter
--- OUTSIDE RECORDS SUMMARY | 2024-06-18 16:21 | XMS_ITS | Encounter Summary ---
Author Organization [employer] Address [address] [facility] [address]t [place] [address] Care Team Providers Care Metal Moulder Name Role Phone Cheyenne Cruz MD Primary Care Provider [phone] Reason for Visit * Reason Comments Pre-visit Planning (Unable to reach for PVP screening, LVM) Encounter Details Date Type Department Care Team ([facility] Contact Info) Description 06/05/2024 Patient Outreach [facility] [address] [place] [address] Cheyenne Cruz MD [address] [place] [address] Pre-visit Planning ((Unable to reach for PVP screening, LVM)) Social History Tobacco Use Types Packs/Day Years [...] the past 12 months, has t he [employer], gas, oil or water company threatened to [...] AM EDT documented as of this encounter Progress Notes * Gail Rahman - 06/05/2024 11:25 AM EST CC Gail. Placed outbound call to patient to complete pre-visit planning. No answer at this time. Patient name and were not confirmed. CC left voicemail requesting return call. Direct contact information provided. documented in this encounter Plan of Treatment Not on file documented as of this encounter Visit Diagnoses Not on filedocumented in this encounter Care Teams Metal Moulder Relationship Specialty Start Date End Date Cheyenne Cruz MD [address] [place] [address] PCP - General Family Medicine 11/04/21 documented as of this encounter
--- OUTSIDE RECORDS SUMMARY | 2024-06-18 16:21 | XMS_ITS | Encounter Summary ---
Author Organization [employer] Address [address] [facility] [address] [place] [address] Care Team Providers Care Paper Reclaiming Machine Operator Name Role Phone Cheyenne Cruz MD Primary Care Provider [phone] Encounter Details Date Type Department Care Team (Late st Contact Info) Description 10/02/2023 Orders Only [facility] [address] [place], [place] [phone] Cheyenne Cruz MD [address] [place], [place] [phone] Lumbar disc herniation with radiculopathy (Primary Dx) Social History Tobacco Use Types [...] as of this encounter Visit Diagnoses Diagnosis Lumbar disc herniation with radiculopathy- Primary Displacement of lumbar intervertebral disc without myelopathy documented in this encounter Care Teams Paper Reclaiming Machine Operator Relationship Specialty Start Date End Date Cheyenne Cruz MD [address] [place] [address] PCP - General Family Medicine 11/04/21 documented as of this encounter
--- OUTSIDE RECORDS SUMMARY | 2024-06-18 16:21 | XMS_ITS | Encounter Summary ---
Author Organization [employer] Address [address] [facility] [address] [place] [address] Care Team Providers Care Sanitarian Aide Name Role Phone Cheyenne Cruz MD Primary Care Provider [phone] Reason for Visit * Reason Onset Date Comments Med Refill 05/15/2024 Encounter Details Date Type Department Care Team ([facility] st Contact Info) Description 05/15/2024 Telephone [facility] MEDICINE [address], [place] [phone] Cheyenne Cruz MD [address], [place] [phone] Med Refill Social History Tobacco Use Types [...] encounter Miscellaneous Notes * Telephone Encounter - Humaira Wright RN - 05/21/2024 11:34 AM EST TC placed to patient [phone] in regards to below message however no answer, RN left VM requesting CB to red team nurses. TC placed to [phone] however no answer, RN left VM requesting CB to red team nurses. Patient to f/u PRN. * Telephone Encounter - Amber Simms - 05/15/2024 12:15 PM EST Pt walked into red team requesting refill for flovent asthma inhaler. documented in this encounter Plan of Treatment Not on file documented as of this encounter Visit Diagnoses Not on filedocumented in this encounter Care Teams Sanitarian Aide Relationship Specialty Start Date End Date Cheyenne Cruz MD [address] [place] [phone] PCP - General Family Medicine 11/04/21 documented as of this encounter
--- OUTSIDE RECORDS SUMMARY | 2024-06-18 16:21 | XMS_ITS | Encounter Summary ---
Author Organization [employer] Address [address] [facility] [address] [place] [address] Care Team Providers Care Wood Shop Teacher Name Role Phone Cheyenne Cruz MD Primary Care Provider [phone] Encounter Details Date Type Department Care Team ([facility] st Contact Info) Description 11/29/2022 Orders Only [facility] MED & PEDS [address] [place], [place] [phone] Miguelina Chase MD [address] [place], [place] [phone] Social History Tobacco Use Types Packs/Day Years [...] on filedocumented in this encounter Care Teams Wood Shop Teacher Relationship Specialty Start Date End Date Cheyenne Cruz MD [address] [place] [address] PCP - General Family Medicine 11/04/21 documented as of this encounter
--- OUTSIDE RECORDS SUMMARY | 2024-06-18 16:21 | XMS_ITS | Data Portability ---
Author Organization [place] - [facility], Allergy Address [address] [facility] [address] [place] [id number] Care Team Providers Care Life Skills Specialist Name Role Phone ARIANNETE LESLIE PEDERSEN Primary Care Provider Assessment Encounter Date Assessment Date Assessment LastModified by Organization Details LastModified Time 05/26/2024 05/26/2024 39 year old male presents for evaluation of nose and sinuses. Physical exam reveals Grade IV polyp in the left nostril. 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 On the right, polyp obstructs the choana and the origin of the polyp is uncertain. CT sinus images reviewed and interpreted by Dr. Turner demonstrates sinusitis in the left sinuses, nasal polyps, and possible fungal ball in the left maxillary sinus. There is no opacification of the right nasal cavity. The patient is a candidate for a left FESS, possible septoplasty and polypectomy on right . The surgical plan will including: nasal endo with right polypectomy, left maxillary antrostomy, ethmoidectomy, sphenoidectomy, and frontal sinusotomy; if needed for access, patient may also require septoplasty. I discussed the risks, benefits and alternatives to endoscopic sinus surgery including but not limited to damage to the orbit or optic nerve resulting in vision loss, double vision, or blindness. I also discussed the risk of CSF leak. I discussed the risk of recurrence of sinus disease or polyps requiring additional procedures, change in sense of smell, septal perforation, bleeding and infection including risks to damaging the internal carotid artery. I discussed the risk of damage to the tear duct with excessive tearing. I discussed the possible need for septoplasty for access. I discussed the risks, benefits and alternatives to septoplasty. Specifically, I discussed the risk of bleeding (which may require more procedures or packing), infection, septal perforation, septal hematoma which if unrecognized can lead to cosmetic nasal deformity, CSF leak, persistent nasal obstruction despite surgery, change in appearance of nose if structural support is disrupted, change in sense of smell, and the possibility of predisposition of future sinus infections. I also discussed the possible need for nasal splints. The patient understands the risks and would like to proceed. We will schedule surgery mutually convenient time. In the interim, recommend 21 day course of doxycycline and an oral steroid burst. Risks reviewed to include GI upset, bleeding stomach ulcer, joint necrosis, mood changes, insomnia, and hormonal shifts. Patient to call the office with any of the above. Recommend panel of labwork as below.. Sent to lab twice, as they stated they did not receive the first electronic submission. Dr. Turner examined patient and directed the plan of care. Patient also examined by Kayce ambrose Not available 05/26/2024 17:06:10 Plan of Treatment Reminders Order Date Submit Date Provider Last Modified By Organization Details Last Modified Time Details Appointments SURGERY 120 2024 02:30P M REGINA LITTLE MD Not available Not available Not available Allergy new injection 2024 09:20A [facility] Not available Not available Not available Post Op 2024 02:00P M EVELIN COHN PA-C Not available Not available Not available Post Op 2024 04:00P M REGINA LITTLE MD Not available Not available Not available New Patient 30 2024 03:00P M REGINA LITTLE MD Not available Not available Not available Lab CBC w/ auto diff 2024 025 [email or web address] [facility], [address], [address], [place], [address], 06/09/2024 13:19:41 unlisted lab - allergens , zone 1 2024 025 [email or web address] [facility], [address], [address], [place], [address], 06/09/2024 13:19:41 nettle IgE Ab, serum 2024 025 [email or web address] [facility], [address] [facility], [address], [place], [address], 06/09/2024 13:19:41 bahia grass IgE Ab, quantitat adelaida, serum 2024 025 [email or web address] [facility], [address] [facility], [address], [place], [address], 06/09/2024 13:19:41 bermuda grass ige, serum 2024 025 [email or web address] [facility], [address] [facility], [address], [place], [address], 06/09/2024 13:19:41 chadian plantain ige, serum 2024 025 [email or web address] [facility], [address] [facility], [place] [address], [place], [address], 06/09/2024 13:19:42 ige, total, serum 2024 025 [email or web address] [facility], [address] [facility], [place] [address], [place], [address], 06/09/2024 13:19:42 ige, total, serum 2024 025 ANUPAM [facility], [address] [facility], [address], [place], [address], 05/29/2024 13:17:34 CBC w/ auto diff 2024 025 ANUPAM [facility], [address] [facility], [address], [place], [address], 05/29/2024 13:17:33 unlisted lab - allergens , zone 1 2024 025 ANUPAM [facility], [address] [facility], [address], [place], [address], 05/29/2024 13:17:34 nettle IgE Ab, serum 2024 025 [email or web address] [facility], [address], [address], [place], [address], 06/09/2024 13:19:42 bahia grass IgE Ab, quantitat adelaida, serum 2024 025 [email or web address] [facility], [address], [address], [place], [address], 06/09/2024 13:19:42 bermuda grass ige, serum 2024 025 [email or web address] [facility], [address], [address], [place], [address], 06/09/2024 13:19:42 chadian plantain ige, serum 2024 025 [email or web address] [facility], [address], [address], [place], [address], 06/09/2024 13:19:42 Referral None recorded. Procedures None recorded. Surgeries septoplas ty (SURG) 2024 025 [email or web address] Not available 05/27/2024 06:48:08 endoscopy , nasal/sin us, w/ maxillary antrostom y & tissue removal (SURG) 2024 025 [email or web address] Not available 05/27/2024 06:48:07 nasal/sin us endoscopy , surgical with ethmoidec amberly, total, including sphenoido amberly, with removal of tissue from the sphenoid sinus (SURG) 2024 025 [email or web address] Not available 05/27/2024 06:48:07 stereotac tic computer- assisted navigatio n (SURG) 2024 025 [email or web address] Not available 05/27/2024 06:48:07 endoscopy , nasal/sin us, surgical, with biopsy, polypecto my or debrideme nt (SURG) 2024 025 [email or web address] Not available 05/27/2024 06:48:08 Imaging None recorded. Medication Orders prednison e 20 mg tablet 2024 025 [id number], [address] [place], [address], 05/26/2024 11:46:37 doxycycli ne hyclate 100 mg capsule 2024 025 [facility] #[id number], [address] [place], [address], 05/26/2024 11:46:37 Patient TargetsNo targets recorded. Patient InstructionsNo instructions recorded. Reason for Referral None Reported. Results Created Date Observation Date Name Description Value Unit Range Abnormal Flag Note LastModifiedBy Organization Detail LastModifiedTime 05/26/1905/27/2024 CBC WITH DIFFE RENTI AL/PL ATELE T WBC 5.5 x10e3 /uL 3.4-10 .8 normal Not Available [facility] ([facility]) [address] [place], [address], 05/29/2024 13:17:33 05/26/19 25 05/27/2024 CBC WITH DIFFE RENTI AL/PL ATELE T RBC 4.83 x10e6 /uL 4.14-5 .80 normal Not Available [facility] ([facility]) [address] [place], [address], 05/29/2024 13:17:33 05/26/19 25 05/27/2024 CBC WITH DIFFE RENTI AL/PL ATELE T hemoglobin 14.2 g/dL 13.0-1 7.7 normal Not Available [facility] ([facility]) [address] [place], [address], 05/29/2024 13:17:33 05/26/19 25 05/27/2024 CBC WITH DIFFE RENTI AL/PL ATELE T hematocrit 43.9 % 37.5-5 1.0 normal Not Available [facility] ([facility]) [address] [place], [address], 05/29/2024 13:17:33 05/26/19 25 05/27/2024 CBC WITH DIFFE RENTI AL/PL ATELE T MCV 91 fL 79-97 normal Not Available [facility] ([facility]) [address] [facility], [place], [address], 05/29/2024 13:17:33 05/26/19 25 05/27/2024 CBC WITH DIFFE RENTI AL/PL ATELE T MCH 29.4 pg 26.6-3 3.0 normal Not Available [facility] ([facility]) [address] [facility], [place], [address], 05/29/2024 13:17:33 05/26/19 25 05/27/2024 CBC WITH DIFFE RENTI AL/PL ATELE T MCHC 32.3 g/dL 31.5-3 5.7 normal Not Available [facility] ([facility]) [address] [facility], [place], [address], 05/29/2024 13:17:33 05/26/19 25 05/27/2024 CBC WITH DIFFE RENTI AL/PL ATELE T RDW 12.8 % 11.6-1 5.4 Not Available [facility] ([facility]) [address] [place], [address], 05/29/2024 13:17:33 05/26/19 25 05/27/2024 CBC WITH DIFFE RENTI AL/PL ATELE T platelets 252 x10e3 /uL 150-45 0 normal Not Available [facility] ([facility]) [address] [place], [address], 05/29/2024 13:17:33 05/26/19 25 05/27/2024 CBC WITH DIFFE RENTI AL/PL ATELE T neutrophils 72 % not estab. normal Not Available [facility] ([facility]) [address] [place], [address], 05/29/2024 13:17:33 05/26/19 25 05/27/2024 CBC WITH DIFFE RENTI AL/PL ATELE T lymphs 21 % not estab. normal Not Available [facility] ([facility]) [address] [facility], [place], [address], 05/29/2024 13:17:33 05/26/19 25 05/27/2024 CBC WITH DIFFE RENTI AL/PL ATELE T monocytes 7 % not estab. normal Not Available [facility] ([facility]) [address] [facility], [place], [address], 05/29/2024 13:17:33 05/26/19 25 05/27/2024 CBC WITH DIFFE RENTI AL/PL ATELE T eos 0 % not estab. normal Not Available [facility] ([facility]) [address] [facility], [place], [address], 05/29/2024 13:17:33 05/26/19 25 05/27/2024 CBC WITH DIFFE RENTI AL/PL ATELE T basos 0 % not estab. normal Not Available [facility] ([facility]) [address] [facility], [place], [address], 05/29/2024 13:17:33 05/26/19 25 05/27/2024 CBC WITH DIFFE RENTI AL/PL ATELE T immature cells [employer] Not Available [facility] ([facility]) [address] [place], [address], 05/29/2024 13:17:33 05/26/19 25 05/27/2024 CBC WITH DIFFE RENTI AL/PL ATELE T neutrophils (absolute) 3.9 x10e3 /uL 1.4-7. 0 normal Not Available [facility] ([facility]) [address] [place], [address], 05/29/2024 13:17:33 05/26/19 25 05/27/2024 CBC WITH DIFFE RENTI AL/PL ATELE T lymphs (absolute) 1.2 x10e3 /uL 0.7-3. 1 normal Not Available [facility] ([facility]) [address] [facility], [place], [address], 05/29/2024 13:17:33 05/26/19 25 05/27/2024 CBC WITH DIFFE RENTI AL/PL ATELE T monocytes(ab solute) 0.4 x10e3 /uL 0.1-0. 9 normal Not Available [facility] ([facility]) [address] [place], [address], 05/29/2024 13:17:33 05/26/19 25 05/27/2024 CBC WITH DIFFE RENTI AL/PL ATELE T eos (absolute) 0.0 x10e3 /uL 0.0-0. 4 normal Not Available [facility] ([facility]) [address] [place], [address], 05/29/2024 13:17:33 05/26/19 25 05/27/2024 CBC WITH DIFFE RENTI AL/PL ATELE T baso (absolute) 0.0 x10e3 /uL 0.0-0. 2 normal Not Available [facility] ([facility]) [address] [place], [address], 05/29/2024 13:17:33 05/26/19 25 05/27/2024 CBC WITH DIFFE RENTI AL/PL ATELE T immature granulocytes 0 % not estab. Not Available [facility] ([facility]) [address] [place], [address], 05/29/2024 13:17:33 05/26/19 25 05/27/2024 CBC WITH DIFFE RENTI AL/PL ATELE T immature grans (abs) 0.0 x10e3 /uL 0.0-0. 1 Not Available [facility] ([facility]) [address] [place], [address], 05/29/2024 13:17:33 05/26/19 25 05/27/2024 CBC WITH DIFFE RENTI AL/PL ATELE T NRBC [employer]GER Not Available [facility] ([facility]) [address] [facility], [place], [address], 05/29/2024 13:17:33 05/26/19 25 05/27/2024 CBC WITH DIFFE RENTI AL/PL ATELE T hematology comments: [employer]GER Not Available [facility] ([facility]) [address] [facility], [place], [address], 05/29/2024 13:17:33 05/26/19 25 05/26/2024 ALLER GENS, ZONE 1 class description Commen t Level s of Speci fic IgE Class Descr iptio n of Class ----- ----- ----- ----- ----- -- ----- ----- ----- ----- ----- < 0.10 0 Negat adelaida 0.10 - 0.31 0/I Equiv ocal/ Low 0.32 - 0.55 I Low 0.56 - 1.40 II Moder ate 1.41 - 3.90 III High 3.91 - 19.00 IV Very High 19.01 - 100.0 0 V Very High >100. 00 Very High Not Available [facility] ([facility]) [address] [facility], [place], [address], 05/29/2024 13:17:34 05/26/19 25 05/29/2024 ALLER GENS, ZONE 1 V383-SdD D pteronyssinu s 5.60 kU/L class IV abnormal Not Available [facility] ([facility]) [address] [facility], [place], [address], 05/29/2024 13:17:34 05/26/19 25 05/29/2024 ALLER GENS, ZONE 1 F710-NxV D farinae 4.88 kU/L class IV abnormal Not Available [facility] ([facility]) [address] [place], [address], 05/29/2024 13:17:34 05/26/19 25 05/29/2024 ALLER GENS, ZONE 1 D525-XtN CAT dander 0.37 kU/L class I abnormal Not Available [facility] ([facility]) [address] [place], [address], 05/29/2024 13:17:34 05/26/19 25 05/29/2024 ALLER GENS, ZONE 1 F821-RmC dog dander 0.94 kU/L class II abnormal Not Available [facility] ([facility]) [address] [facility], [place], [address], 05/29/2024 13:17:34 05/26/19 25 05/29/2024 ALLER GENS, ZONE 1 d859-LhJ bermuda grass <0.10 kU/L class 0 Not Available [facility] ([facility]) [address] [place], [address], 05/29/2024 13:17:34 05/26/19 25 05/29/2024 ALLER GENS, ZONE 1 p631-KaN bluegrass, shwetha 3.37 kU/L class III abnormal Not Available [facility] ([facility]) [address] [place], [address], 05/29/2024 13:17:34 05/26/19 25 05/29/2024 ALLER GENS, ZONE 1 a001-LtF bahia grass <0.10 kU/L class 0 Not Available [facility] ([facility]) [address] [place], [address], 05/29/2024 13:17:34 05/26/19 25 05/29/2024 ALLER GENS, ZONE 1 E351-HwF cockroach, somali 0.38 kU/L class I abnormal Not Available [facility] ([facility]) [address] [place], [address], 05/29/2024 13:17:34 05/26/19 25 05/29/2024 ALLER GENS, ZONE 1 M999-ZiH penicillium chrysogen 1.41 kU/L class III abnormal Not Available [facility] ([facility]) [address] [place], [address], 05/29/2024 13:17:34 05/26/19 25 05/29/2024 ALLER GENS, ZONE 1 P877-JpX cladosporium herbarum <0.10 kU/L class 0 Not Available [facility] ([facility]) [address] [place], [address], 05/29/2024 13:17:34 05/26/19 25 05/29/2024 ALLER GENS, ZONE 1 A069-CsZ aspergillus fumigatus <0.10 kU/L class 0 Not Available [facility] ([facility]) [address] [place], [address], 05/29/2024 13:17:34 05/26/19 25 05/29/2024 ALLER GENS, ZONE 1 J810-FjP mucor racemosus <0.10 kU/L class 0 Not Available [facility] ([facility]) [address] [place], [address], 05/29/2024 13:17:34 05/26/19 25 05/29/2024 ALLER GENS, ZONE 1 G031-DsY alternaria alternata <0.10 kU/L class 0 Not Available [facility] ([facility]) [address] [place], [address], 05/29/2024 13:17:34 05/26/19 25 05/29/2024 ALLER GENS, ZONE 1 C969-EbM stemphylium herbarum 0.54 kU/L class I abnormal Not Available [facility] ([facility]) [address] [place], [address], 05/29/2024 13:17:34 05/26/19 25 05/29/2024 ALLER GENS, ZONE 1 W346-FlM common silver birch 0.14 kU/L class 0/I abnormal Not Available [facility] ([facility]) [address], [place], [address], 05/29/2024 13:17:34 05/26/19 25 05/29/2024 ALLER GENS, ZONE 1 O010-AwB oak, white 0.10 kU/L class 0/I abnormal Not Available [facility] ([facility]) [address] [facility], [place], [address], 05/29/2024 13:17:34 05/26/19 25 05/29/2024 ALLER GENS, ZONE 1 O542-EmQ elm, somali 0.10 kU/L class 0/I abnormal Not Available [facility] ([facility]) [address] [facility], [place], [address], 05/29/2024 13:17:34 05/26/19 25 05/29/2024 ALLER GENS, ZONE 1 N952-QxK kobi, white 0.12 kU/L class 0/I abnormal Not Available [facility] ([facility]) [address] [facility], [place], [address], 05/29/2024 13:17:34 05/26/19 25 05/29/2024 ALLER GENS, ZONE 1 G924-DtJ maple/box elder <0.10 kU/L class 0 Not Available [facility] ([facility]) [address] [facility], [place], [address], 05/29/2024 13:17:34 05/26/19 25 05/29/2024 ALLER GENS, ZONE 1 D057-BmD hazelnut tree <0.10 kU/L class 0 Not Available [facility] ([facility]) [address] [facility], [place], [address], 05/29/2024 13:17:34 05/26/19 25 05/29/2024 ALLER GENS, ZONE 1 O688-FgI hickory, white 0.19 kU/L class 0/I abnormal Not Available [facility] ([facility]) [address], [place], [address], 05/29/2024 13:17:34 05/26/19 25 05/29/2024 ALLER GENS, ZONE 1 V555-SgN white mulberry <0.10 kU/L class 0 Not Available [facility] ([facility]) [address], [place], [address], 05/29/2024 13:17:34 05/26/19 25 05/29/2024 ALLER GENS, ZONE 1 V905-VrM cedar, mountain <0.10 kU/L class 0 Not Available [facility] ([facility]) [address], [place], [address], 05/29/2024 13:17:34 05/26/19 25 05/29/2024 ALLER GENS, ZONE 1 G302-JrF ragweed, short 0.59 kU/L class II abnormal Not Available [facility] ([facility]) [address], [place], [address], 05/29/2024 13:17:34 05/26/19 25 05/29/2024 ALLER GENS, ZONE 1 W917-HqD mugwort <0.10 kU/L class 0 Not Available [facility] ([facility]) [address], [place], [address], 05/29/2024 13:17:34 05/26/19 25 05/29/2024 ALLER GENS, ZONE 1 S489-YgS plantain, chadian <0.10 kU/L class 0 Not Available [facility] ([facility]) [address], [place], [address], 05/29/2024 13:17:34 05/26/19 25 05/29/2024 ALLER GENS, ZONE 1 Q552-RvT pigweed, common <0.10 kU/L class 0 Not Available [facility] ([facility]) [address] [facility], [place], [address], 05/29/2024 13:17:34 05/26/19 25 05/29/2024 ALLER GENS, ZONE 1 B792-LuX sheep sorrel <0.10 kU/L class 0 Not Available [facility] ([facility]) [address] [facility], [place], [address], 05/29/2024 13:17:34 05/26/19 25 05/29/2024 ALLER GENS, ZONE 1 S544-SwX nettle <0.10 kU/L class 0 Not Available [facility] ([facility]) [address] [facility], [place], [address], 05/29/2024 13:17:34 05/26/19 25 05/29/2024 IMMUN OGLOB ULIN E, TOTAL immunoglobul in E, total 244 IU/mL 6-495 Not Available [facility] ([facility]) [address] [facility], [place], [address], 05/29/2024 13:17:34 05/26/19 25 05/21/2024 CT, sinus es, w/o contr ast No observ ation record ed. [email or web address] [facility] [address], [place], [address], 05/26/2024 09:56:23 05/26/19 25 05/21/2024 CT, maxil lofac ial, w/o contr ast No observ ation record ed. [email or web address] Not Available 05/08 11:27:40 Result Notes None recorded. 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 KAYCE PEDERSON, PA-C [address] [facility] [place], [place], [address], [place] - [facility] 09:19:07 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 KAYCE PEDERSON, PA-C [address] [facility] [place], [place], [address], [place] - [facility] 09:19:07 Deviated nasal septum 659882835 Active 2024 REGINA LITTLE MD [address] [facility],[address], [place], [address], [facility] - [facility] 17:08:30 Allergic rhinitis 16504023 Active 2024 KAYCE PEDERSON, PA-C [address] [facility],[address], [place], [address], [facility] - [facility] 16:39:23 Problem Notes None recorded. Procedures Surgical History Date Name Laterality Status Provider Name and Address Organization Details Recorded Time Nasal Endoscopy completed REGINA TURNER MD [address] [facility] [address], [place], [address], [facility] - [facility] 05/26/2024 17:06:59 Imaging Results Imaging Date Name Status LastModified by Organiz ation Details LastModified Time 05/21/2024 CT, sinuses, w/o contrast completed [email or web address] [facility] ([facility]) [address] [facility] [address], [place], [address], 05/26/2024 09:56:23 05/21/2024 CT, maxillofacial , w/o contrast completed [email or web address] Information not available 05/26/2024 11:27:40 Procedure Notes None recorded. Medical Equipment None Reported. Medications Name Sig Start Date Stop Date Status Note LastModified by Organization Details LastModified Time doxycycline hyclate 100 mg capsule TAKE 1 CAPSULE TWICE A DAY BY ORAL ROUTE WITH MEAL(S) FOR 21 DAYS. active Not Available Not Available No t Available cetirizine 10 mg tablet TAKE 1 TABLET BY MOUTH EVERY DAY IF NEEDED 05/26 completed Not Available Not Available Not Available azithromyci n 250 mg tablet TAKE 2 TABS DAY 1 AND THEN 1 TAB DAILY TO FINISH 05/26 completed Not Available Not Available Not Available ibuprofen 800 mg tablet 05/26 completed Not Available Not Available Not Available prednisone 20 mg tablet TAKE 3 TABLETS DAILY FOR 3 DAYS, 2 TABLETS DAILY FOR 3 DAYS AND 1 TABLET DAILY FOR 3 DAYS WITH FOOD active Not Available Not Available No t Available chlorthalid one 25 mg tablet TAKE 1 TABLET (25 MG) BY MOUTH ONCE PER DAY. 05/26 completed Not Available Not Available Not Available cephalexin 500 mg capsule TAKE 1 CAPSULE BY MOUTH 2 TIMES DAILY FOR 7 DAYS. 05/26 completed Not Available Not Available Not Available pantoprazol e 40 mg tablet,sharon yed release TAKE 1 TABLET BY MOUTH EVERY DAY active Not Available Not Available No t Available oxycodone 5 mg capsule TAKE 1 CAPSULE BY MOUTH EVERY 6 HOURS NEEDED FOR PAIN 05/26 completed Not Available Not Available Not Available pseudoephed rine 30 mg tablet TAKE 1 TABLET (30 MG) BY MOUTH EVERY 4 (FOUR) HOURS IF NEEDED FOR CONGESTIO N FOR UP TO 10 DAYS. 05/26 completed Not Available Not Available Not Available gabapentin 100 mg capsule TAKE 2 CAPSULE BY MOUTH 3 TIMES A DAY 05/26 completed Not Available Not Available Not Available azelastine 137 mcg (0.1 %) nasal spray ADMINISTE R 1 SPRAY INTO EACH NOSTRIL 2 TIMES DAILY. USE IN EACH NOSTRIL DIRECTED 05/26 completed Not Available Not Available Not Available epinephrine 0.3 mg/0.3 mL injection, auto-inject or Take 1 auto by injection route for 180 days, for anaphylax is. active Not Available Not Available No t Available methylpredn isolone 4 mg tablets in a dose pack TAKE 6 TABLETS ON DAY 1 DIRECTED ON PACKAGE AND DECREASE BY 1 TAB EACH DAY FOR A TOTAL OF 6 DAYS 05/26 completed Not Available Not Available Not Available amoxicillin 875 mg-cece moss clavulanate 125 mg tablet TAKE 1 TABLET BY MOUTH TWICE A DAY 05/26 completed Not Available Not Available Not Available oxycodone 5 mg tablet TAKE 1 TABLET (5 MG) BY MOUTH EVERY 12 (TWELVE) HOURS IF NEEDED FOR SEVERE PAIN FOR UP TO 10 DAYS. 05/26 completed Not Available Not Available Not Available blood pressure test kit-large cuff USE TO CHECK BLOOD PRESSURE ONCE DAILY 05/26 completed Not Available Not Available Not Available Arnuity Ellipta 100 mcg/actuati on powder for inhalation active Not Available Not Available N ot Available Vitals Date Recorded Body height Body mass index (BMI) Body weight Provider Name and Address Organization Details Last Updated DateTime 05/26/2024 185.42 cm 41.4 kg/m2 106488 g Yovana Marino [place] - [facility] 05/26/2024 08:53:35 Social History Question Answer Notes LastModified by Organizat ion Details LastModified Time Tobacco Smoking Status Smoker, Current Status Unknown Xiomara padilla [place] - [facility] 05/26/2024 09:38:00 What Is Your Level Of Alcohol Consumption? Occasional [email or web address] Information not available 05/26/2024 Sex: Unknown Functional Status None recorded. Mental Status None recorded. Family History Nothing Reported. Medical History Condition Response Asthma Y Past Encounters Encounter ID Performer Location Encounter Start Date Encounter Closed Date Diagnosis/Indication Diagnosis SNOMED-CT Code Diagnosis ICD10 Code Diagnosis Note [id number] REGINA MORELOS MD [facility] [address] [address] 05/26/2024 08:36:58 05/26/2024 11:26:14 Chronic sinusitis 98059602 J32.9 Polyp of nasal cavity 73 0307313 J33.0 Deviated nasal septum 12 6777644 J34.2 Health Concerns Section Related Observation LastModified by Organization Detai ls LastModified Time None Recorded Concern Status LastModified by Organization Details LastModified Time None Recorded Advance Directives Directive None Recorded Payers None recorded. Notes Date Note Type Note Provider Name and Address Organization Details Recorded Time 05/26/2024 text/html 39 year old male presents for evaluation of ears and hearing. One year ago patient noticed foreign body sensation in the nose and went to an urgent care where he was given a couple of sprays and a pill. Thinks he had an oral antihistamine and oral steroids. Went back a few months ago due to no improvement. He was prescribed the same thing. None of his symptoms improved. Five days ago he went in with sinus pressure and congestion and a CT was performed. He was told that he had fungal sinusitis and it was urgent that he come here within a few days. He is currently having sinus pressure around left eye and top of teeth and yellow mucus from the nose. And yellow tears impairing my vision. He is currently not taking any medications nor sprays. Denies fevers, chills, and night sweats. REGINA TURNER MD [address] [place] [address], [place], [phone], [facility] - [facility] 05/26/2024 17:09:34
--- OUTSIDE RECORDS SUMMARY | 2024-06-18 16:21 | XMS_ITS | Encounter Summary ---
Author Organization [id number] Address [address] [place] [address] [address] [place] [address] Care Team Providers Care Director Marketing Name Role Phone Cheyenne Cruz MD Primary Care Provider [phone] Reason for Referral * Consultation (STAT) - Authorized Specialty Diagnoses / Procedures Referred By Contac t Referred To Contact Otolaryngology Diagnoses Nasal cavity mass Agapito Vargas MD [address] [place] [address] Phone: tel: fax: [address] Phone: tel: fax: Referral ID Status Reason Start Date Expiration Date Visits Requested Visits Authorized [id number] Authorized Specialty Services Required 05/23/2024 05/23/2025 1 1 Reason for Visit * Reason Comments nasal mass Encounter Details Date Type Department Care Team (Late st Contact Info) Description 05/23/2024 10:00 AM EST Office Visit [facility] [address] [place] [address] [phone] Agapito Vargas MD [address] [place] [address] [phone] Nasal cavity mass (Primary Dx); Hypertension, unspecified type Social History Tobacco Use Types Packs/Day Years [...] Sign Reading Time Taken Comments Blood Pressure 164/108 05/23/2024 11:17 AM EST Pulse 71 05/23/2024 10:34 AM EST Temperature 36.9 ??C (98.4 ??F) 05/23/2024 10:[address] Respiratory Rate 22 05/23/2024 10:34 AM EST Oxygen Saturation 95% 05/23/2024 10:34 AM EST Inhaled Oxygen Concentration - - Weight 143 kg (315 lb 12.8 oz) 05/23/2024 10:34 AM EST Height - - Body Mass Index 41.66 04/12/2022 1:58 PM EST documented in this encounter Progress Notes * Agapito Vargas MD - 05/23/2024 10:00 AM EST Subjective Patient ID: Tobi Perez is a 39 y.o. male. HPI Tobi was seen at [facility] 2 days ago for a mass that he saw growing towards introitus in left nares with mild pressure in left upper maxillary area. CT scan of sinuses: IMPRESSION: Incomplete opacification of the left nasal cavity and left maxillary sinus as well as opacification of the foei-zhbanwa-ynfw-right ethmoid air cells. Central hyperdense appearance of the left maxillary sinus opacification suggest chronic fungal sinusitis. Was not prescribed any meds. Was advised to call ENT. No fever, chills. Was referred to ENT at [facility] office visit 01/28/2024 due to ?polyp occluding left nares. States Augmentin prescribed then for possible sinusitis did not help. Was given gualberto't for 08/2024. Lives with . Not employed. Smokes 2 cigarettes/day. Denies NRT. Drinks about 10 beers every on weekends. Patient Active Problem List Diagnosis Alcohol abuse Asthma Depressive disorder Edema of lower extremity Gastroesophageal reflux disease Joint pain Obesity Obstructive sleep apnea syndrome Pain in joint involving lower leg Rash Tobacco dependence syndrome Visual impairment Tinnitus Blurry vision Hypertension Lumbar disc herniation with radiculopathy Daytime somnolence The following portions of the chart were reviewed this encounter and updated as appropriate: Tobacco Allergies Meds Problems Med Hx Surg Hx Fam Hx Review of Systems Constitutional: Negative for fever. HENT: Positive for sinus pressure. Respiratory: Negative for shortness of breath. Cardiovascular: Negative for chest pain. Gastrointestinal: Negative for abdominal pain. Skin: Negative for rash. Neurological: Negative for headaches. Objective Physical Exam Vitals and nursing note reviewed. Constitutional: Appearance: Normal appearance. HENT: Head: Normocephalic and atraumatic. Nose: Nose normal. Comments: Norkal right nares. Left nares: ?polyp-appearing whitish mass now extending down towards introitus. Mass was higher in nares on exam 01/2024. Eyes: Conjunctiva/sclera: Conjunctivae normal. Pupils: Pupils are equal, round, and reactive to light. Pulmonary: Effort: Pulmonary effort is normal. Skin: General: Skin is warm and dry. Neurological: Mental Status: He is alert. Gait: Gait is intact. Psychiatric: Mood and Affect: Mood and affect normal. Behavior: Behavior normal. Procedures Assessment/Plan Diagnoses and all orders for this visit: Nasal cavity mass We called [facility] where he had gualberto't in August, and they requested a new stat referral and they will schedule a sooner gualberto't. I sent the new referral. Return to ED if sx worsen. Hypertension, unspecified type Did not take chlorthalidone this AM. Advised to take when he returns home. States that home BP systolic readings are usually in 140s, ?diastolic readings. Has home BP monitor. Reviewed BP parameters, given written BP log that includes BP parameters, to keep daily. Bring BP log to PCP gualberto't next month. Other orders - ibuprofen 800 MG tablet; Take 1 tablet (800 mg) by mouth if needed in the morning, at noon, and at bedtime for mild pain for up to 10 days. documented in this encounter Plan of Treatment Scheduled Referrals Name Type Priority Associated Diagnoses Orde r Schedule Referral to ENT Outpatient Referral STAT Nasal cavity mass Expected: 05/23/2024 (Approximate), Expires: 05/23/2025 documented as of this encounter Visit Diagnoses Diagnosis Nasal cavity mass- Primary Hypertension, unspecified type documented in this encounter Care Teams Director Marketing Relationship Specialty Start Date End Date Cheyenne Cruz MD [address] [place] [id number] PCP - General Family Medicine 11/04/21 documented as of this encounter
--- OUTSIDE RECORDS SUMMARY | 2024-06-18 16:21 | XMS_ITS | Continuity of Care Document ---
Author Organization [place] - [facility], [facility] Address [address] [place] [address] Care Team Providers Care Bacteriologist Food Name Role Phone LESLIE WHEELER Primary Care Provider [phone] Assessment Encounter Date Assessment Date Assessment LastModified [...] [facility], [address], [address], [place], [address], 06/09/2024 13:19:41 unlisted lab - allergens , zone 1 2024 [id number] [email or web address] [facility], [address], [address], [place], [address], 06/09/2024 13:19:41 nettle IgE Ab, serum 2024 025 [email or web address] [facility], [address], [address], 06/09/2024 13:19:41 bahia grass IgE Ab, quantitat adelaida, serum 2024 025 [email or web address] [facility], [address], [address], 06/09/2024 13:19:41 bermuda grass ige, serum 2024 025 [email or web address] [facility], [address], [address], 06/09/2024 13:19:41 amharic plantain ige, serum 2024 025 [email or web address] [facility], [address], [address], 06/09/2024 13:19:42 ige, total, serum 2024 025 [email or web address] [facility], [address], [address], 06/09/2024 13:19:42 ige, total, serum 2024 025 ANUPAM [facility], [address] [facility], [place] [address], [place], [address], 05/29/2024 13:17:34 CBC w/ auto diff 2024 025 ANUPAM [facility], [address] [facility], [place] [address], [place], [address], 05/29/2024 13:17:33 unlisted lab - allergens , zone 1 2024 025 ANUPAM [facility], [address] [facility], [place] [address], [place], [address], 05/29/2024 13:17:34 nettle IgE Ab, serum 2024 025 [email or web address] [facility], [address], [address], [place], [address], 06/09/2024 13:19:42 bahia grass IgE Ab, quantitat adelaida, serum 2024 025 [email or web address] [facility], [address], [address], [place], [address], 06/09/2024 13:19:42 bermuda grass ige, serum 2024 025 [email or web address] [facility], [address], [address], [place], [address], 06/09/2024 13:19:42 amharic plantain ige, serum 2024 025 [email or web address] [facility], [address], [address], [place], [address], 06/09/2024 13:19:42 Referral None recorded. Procedures None [...] prednison e 20 mg tablet 2024 025 [id number], [address] [place], [address], 05/26/2024 11:46:37 doxycycli ne hyclate 100 mg capsule 2024 025 [id number], [address] [place], [address], 05/26/2024 11:46:37 Patient TargetsNo targets recorded. Patient InstructionsNo instructions recorded. Reason for Referral None Reported. Results Created Date Observation Date Name Description Value Unit Range Abnormal Flag Note LastModifiedBy Organization Detail LastModifiedTime 05/26/1905/21/2024 CT, sinus es, w/o contr ast No observ ation record ed. [email or web address] [facility] [address] [facility] [address], [place], [address], 05/26/2024 09:56:23 05/26/1905/21/2024 CT, maxil lofac ial, w/o contr ast No observ ation record ed. [email or web address] Not Available 05/08 11:27:40 Result Notes None recorded. Problems Name Problem SNOMED Code Status Onset Date Resolution Date Notes Provider Name and Address Organization Details Recorded Time Chronic sinusitis 77956857 Active 2024 KAYCE PEDERSON PA-C [address] [place] [address], [place], [phone], [facility] - [facility] 5 09:11:28 Polyp of nasal cavity 688357835 Active 2024 KAYCE PEDERSON PA-C [address] [place] [address], [place], [phone], 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 [place] 5 09:19:07 Deviated nasal septum 292156160 Active 2024 REGINA LITTLE MD 100 [facility] [address], [place], [address], [facility] - [facility] [place] 5 17:08:30 Allergic rhinitis 66533108 Active 2024 KAYCE PEDERSON PA-C [address] [facility], [address], [place], [address], [facility] - [facility] [place] 16:39:23 Problem Notes None recorded. Procedures Surgical History Date Name Laterality Status Provider Name and Address Organization Details Recorded Time Nasal Endoscopy completed REGINA TURNER MD [address], [address], [facility] [place] 05/26/2024 17:06:59 Imaging Results None recorded. Procedure Notes None recorded. Medical Equipment None [...] Available Not Available Not Available amoxicillin 875 mg-potassiu m clavulanate 125 mg tablet TAKE 1 TABLET [...] Updated DateTime 05/26/2024 185.42 cm 41.4 kg/m2 026587 g Yovana Gonzalez [facility] 05/26/2024 08:53:35 Social History Question Answer Notes LastModified by Organizat ion Details LastModified Time Tobacco Smoking Status Smoker, Current Status Unknown [facility] 05/26/2024 09:38:00 What Is Your Level Of Alcohol Consumption? Occasional [email or web address] Information not available 05/26/2024 Sex: Unknown Functional Status None recorded. Mental Status None recorded. Family History Nothing Reported. Medical History Condition Response Asthma Y Past Encounters Encounter ID Performer Location Encounter Start Date Encounter Closed Date Diagnosis/Indication Diagnosis SNOMED-CT Code Diagnosis ICD10 Code Diagnosis Note [id number] REGINA MORELOS MD [facility] [address] [address] 05/26/2024 08:36:58 05/26/2024 11:26:14 Chronic sinusitis 38018250 J32.9 Polyp of nasal cavity 73 2114943 J33.0 Deviated nasal septum 12 3847680 J34.2 Health Concerns Section Related Observation LastModified by Organization Detai ls LastModified Time None Recorded Concern Status LastModified by Organization Details LastModified Time None Recorded Payers None recorded. Notes Date [...] chills, and night sweats. REGINA TURNER MD [address] [place] [address], [phone], [facility] - [facility] 05/26/2024 17:09:34
--- OUTSIDE RECORDS SUMMARY | 2024-06-18 16:21 | XMS_ITS | Encounter Summary ---
Author Organization [email or web address] Address [address] [place] [address] Care Team Providers Care Blasting Machine Operator Name Role Phone Cheyenne Cruz MD Primary Care Provider Encounter Details Date Type Department Care Team (Late st Contact Info) Description 05/21/2024 Orders Only [facility] [address] [place], [place] [phone] Cheyenne Cruz MD [address] [place], [place] [phone] Social History Tobacco Use Types Packs/Day Years [...] on file documented as of this encounter Procedures Procedure Name Priority Date/Time Associated Diagnosis Comments CT SINUS FACIAL BONES WO CONTRAST Routine 05/21/2024 7:13 PM EST STREP A NUCLEIC ACID Routine 05/21/2024 4:22 PM EST SARS COV2/INFLUENZA A/B AND RSV RNA QL NAAT Routine 05/21/2024 4:22 PM EST CBC WITH AUTO DIFFERENTIAL Routine 05/21/2024 4:22 PM EST BASIC METABOLIC PANEL Routine 05/21/2024 4:22 PM EST documented in this encounter Results * CT Sinus Facial Bones w/o Contrast (05/21/2024 7:13 PM EST) Anatomical Region Laterality Modality Computed Tomogra phy 05/21/2024 7:13 PM EST Narrative 05/21/2024 7:15 PM EST ? [facility] ?[address] ?[place] [address] ? CT Scan Report ? Signed ? Patient: Perez Costa,Tobi ?MR#: MM ?? [id number] ? : 1985 ?Acct:[id number] ? Age/Sex: 39 / M ?ADM Date: 05/21/24 ? Loc: HO.ED ? Attending Dr: ? Ordering Physician: Ceasar Mike ?? Date of Service: 05/21/24 ?? Procedure(s): CT facial bones wo IV con ?? Accession Number(s): [id number] ? cc: [facility]; Ceasar Mike ? Report Number: ?? [id number]: Total DLP = ??534.00 mGy-cm ? CLINICAL HISTORY: Left nostril mass? deviated septum? CT maxillofacial without contrast ? Comparison: None ? Findings: ?? 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 ?? Partial occlusion of the zixg-qdwxzvq-vcji-right mastoid air cells. Left ?? maxillary sinus opacification essentially hyperdense suggesting fungal ?? sinusitis. Left maxillary sinus wall thickening and sclerosis indicative ?? of chronicity. Sphenoid sinuses and frontal sinuses are clear. ? No mastoid air cell effusion. ? No destructive bony changes or acute fracture. Minimal deviation of the ?? bony nasal septum to the right. ? Orbital structures normal. ? IMPRESSION: ?? Incomplete opacification of the left nasal cavity and left maxillary sinus ?? as well as opacification of the cfdr-kpwjrzd-diox-right ethmoid air cells. ?? Central hyperdense appearance of the left maxillary sinus opacification ?? suggest chronic fungal sinusitis. ? This document has been electronically signed by: Raghu Ventura MD on ?? 05/21/2024 19:13:46 ? Dictated By: ?Raghu Ventura MD ? Signed By: ?<Electronically signed by Raghu Ventura MD in OV> ? 05/21/241914 ? DD/ 12 ? TD/TT: 05/21/241912 ? Nursing Faculty: ? Procedure Note Alisha, Yeni - 05/21/[address] [address] [address] Scan Report Signed Patient: Eden Florentino#: [id number] : 1985Acct:[id number] Age/Sex: 39 / MADM Date: 05/21/24 Loc: HO.ED Attending Dr: Ordering Physician: Ceasar Mike Date of Service: 05/21/24 Procedure(s): CT facial bones wo IV con Accession Number(s): [id number] cc: [facility]; Ceasar Mike Report Number: [id number]: Total DLP = 534.00 mGy-cm CLINICAL HISTORY: Left nostril mass? deviated septum? CT maxillofacial without contrast Comparison: None Findings: Complete occlusion of the left nasal cavity and left maxillary sinus. Partial occlusion of the bnfe-kxykzsu-fwxv-right mastoid air cells. Left maxillary sinus opacification [...] sinus as well as opacification of the mlla-mhzfixy-pvoy-right ethmoid air cells. Central hyperdense appearance of the left maxillary sinus opacification suggest chronic fungal sinusitis. This document has been electronically signed by: Raghu Ventura MD on 05/21/2024 19:13:46 Dictated By: Raghu Ventura MD Signed By: <Electronically signed by Raghu Ventura MD in OV> 05/21/241914 DD/ 12 TD/TT: 05/21/241912 Nursing Faculty: [facility] External Provider IMG CT PROCEDURES Edited Result - Final * SARS-CoV-2 RNA, Influenza A/B, and RSV RNA, Ql NAAT (05/21/2024 4:22 PM EST) Influenza A PCR NEGATIVE Negative [facility] Influenza B PCR NEGATIVE Negative [facility] Resp Syncy Virus RNA Qual PCR NEGATIVE Negative [facility] SARS COV2 PCR NEGATIVE Negative [facility] Comment:All test results mus t be correlated with clinical findings.Negative results do not preclude SARS-CoV2, influenza Avirus, influenza B virus and/or RSV infectionand should not be used as the sole basis for treatment orother patient management decisions. Negative results must becombined with clinical observations, patient history, andepidemiological information.This test has not been evaluated for monitoring treatment ofinfection.This test has been authorized by the FDA under an EmergencyUse Authorization (EUA) for use by authorized laboratories.Testing performed on the 3FLO[employer] GeneXpert utilizingreal-time RT-PCR.All SARS CoV2 and positive influenza A/B results arereported to [facility]. 05/21/2024 4:22 PM EST 05/21/2024 4:25 PM EST Generic External Data Provider LAB MICROBIOLOGY - GENERAL ORDERABLES Final Result Performing Organization Address [facility] Co de Phone Number [facility] [address] [place] [phone] * Strep A Nucleic Acid (05/21/2024 4:22 PM EST) IDNOW SERIAL# [id number] [facility] Strep A Nucleic Acid Negative Negative [facility] Comment:All test results mus t be correlated with clinical findings.This test has not been evaluated for monitoring treatment ofinfection.Additional follow-up testing using the culture method isrequired if the result is negative and clinical symptomspersist, or in the event of an acute rheumatic feveroutbreak. 05/21/2024 4:22 PM EST 05/21/2024 4:25 PM EST Generic External Data Provider LAB MICROBIOLOGY - GENERAL ORDERABLES Final Result Performing Organization Address [facility] Co de Phone Number [facility] [address] [place] [phone] * (ABNORMAL) Basic Metabolic Panel (05/21/2024 4:22 PM EST) Sodium 145 135 - 145 mmol/L [facility] Potassium 3.9 3.3 - 5.1 mmol/L [facility] Chloride 106 96 - 108 mmol/L [facility] Carbon Dioxide 31(H) 22 - 29 mmol/L [facility] Anion Gap 12 12 - 20 [facility] Urea Nitrogen (BUN) 16 9 - 16 mg/dL [facility] Creatinine, Serum 0.86 0.5 - 1.4 mg/dL [facility] Creatinine Clr Calc Pharmacy 162.6 [facility] Comment:eGFR (calculated fro m the MDRD study equation) and eCrCl(calculated from the Cockcroft-Gault equation) are based ondifferent parameters and may not yield comparable results.If eCrCl result is absurd, please check patient'sheight/weight. Estimated Glomerular Filt Rate >60 [facility] Comment:Chronic Kidney Disea se: Estimated GFR < 60 mL/min/1.78b2Bgbukv Kidney Disease: Estimated GFR < 15 mL/min/1.73m2 Glucose 131(H) 60 - 115 mg/dL [facility] Calcium 9.5 8.4 - 10.2 mg/dL [facility] 05/21/2024 4:22 PM EST 05/21/2024 4:25 PM EST us Generic External Data Provider LAB BLOOD ORDERAB LES Final Result [facility] [address] [place] [phone] * (ABNORMAL) CBC auto differential (05/21/2024 4:22 PM EST) White Blood Count 5.0 4.8 - 10.8 X10*3/uL [facility] Red Blood Count 4.42(L) 4.60 - 5.80 X10*6/uL [facility] Hemoglobin 13.4(L) 14.0 - 18.0 g/dl [facility] Hematocrit 39.4(L) 42.0 - 52.0 % [facility] Mean Corpuscular Volume 89.1 80.0 - 98.0 fL [facility] Mean Corpuscular Hemoglobin 30.3 27.0 - 33.0 pg [facility] Mean Corpuscular HGB Conc 34.0 31.0 - 36.0 g/dl [facility] Red Cell Distribution Width 12.9 11.0 - 16.0 % [facility] Platelet Count 210 160 - 400 X10*3/uL [facility] Mean Platelet Volume 9.9 9.4 - 12.4 fL [facility] Neutrophils Percent Auto 68.5 45 - 73 % [facility] Imm Gran Pct Auto 0.2 0.0 - 0.4 % [facility] Lymphocytes Percent Auto 21.4 20 - 40 % [facility] Monocytes Percent Auto 8.7 2 - 11 % [facility] Eosinophils Percent Auto 0.8 0 - 4 % [facility] Basophils Percent Auto 0.4 0 - 2 % [facility] NRBC Pct Auto 0.0 0.0 - 0.2 /100WBC [facility] Neutrophils Absolute Auto 3.4 2.0 - 8.3 x10*3/uL [facility] Imm Gran Abs Auto 0.01 0.00 - 0.03 X10*3/uL [facility] Lymphocytes Absolute Auto 1.1(L) 1.2 - 4.9 X10*3/uL [facility] Monocytes Absolute Auto 0.4 0.1 - 1.2 X10*3/uL [facility] Eosinophils Absolute Auto 0.0 0.0 - 0.4 X10*3/uL [facility] Basophils Absolute Auto 0.0 0.0 - 0.2 X10*3/uL [facility] NRBC Abs Auto 0.000 0.0 - 0.012 X10*3/uL [facility] 05/21/2024 4:22 PM EST 05/21/2024 4:25 PM EST us Generic External Data Provider LAB BLOOD ORDERAB LES Final Result [facility] [address] [place] [phone] documented in this encounter Visit Diagnoses Not on filedocumented in this encounter Care Teams Blasting Machine Operator Relationship Specialty Start Date End Date Cheyenne Cruz MD [address] [place] [phone] PCP - General Family Medicine 11/04/21 documented as of this encounter
--- OUTSIDE RECORDS SUMMARY | 2024-06-18 16:21 | XMS_ITS | Clinical Summary ---
Author Organization [employer] Address [address] [facility] [address] [place] [address] Care Team Providers Care Tobacco Curer Name Role Phone Cheyenne Cruz MD Primary Care Provider [phone] Allergies No known active allergies Medications albuterol (2.5 MG/3ML) 0.083% nebulizer solution Inhale 1 ampule every 4 (four) hours if needed. Cough, wheeze, sob 10/10/19 13 Active Ibuprofen (MOTRIN PO) Take 2 tablets by mouth every 4 (four) hours if needed. Every 4-6 hours as needed with food Active albuterol 108 (90 Base) MCG/ACT inhaler Inhale 2 puffs every 4 (four) hours if needed. 03/06/20 19 Active halobetasol (Ultravate) 0.05 % creamIndications :Psoriasis Apply topically 2 times daily. 50 g 2 08/05/19 23 Active cetirizine (ZyrTEC) 10 MG tablet TAKE 1 TABLET BY MOUTH EVERY DAY IF NEEDED 90 tablet 3 10/08/19 24 Active Blood Pressure kit 1 Device Once per day. 1 kit 01/28/20 24 Active fluticasone furoate (Arnuity Ellipta) 100 MCG/ACT inhaler Inhale 1 puff Once per day. Rinse mouth with water after use to reduce aftertaste and incidence of candidiasis. Do not swallow. 1 each 11 05/21/19 25 2025 Active EPINEPHrine (Epipen) 0.3 MG/0.3ML injection syringe Take 1 auto by injection route for 180 days, for anaphylaxis. Active chlorthalidone (Hygroton) 25 MG tabletIndication s:Hypertension, unspecified type Take 1 tablet (25 mg) by mouth Once per day. 90 tablet 06/18/19 25 2025 Active pantoprazole (ProtoNix) 40 MG EC tabletIndication s:Gastroesophage al reflux disease without esophagitis Take 1 tablet (40 mg) by mouth Once per day. Do not crush, chew, or split. 90 tablet 06/18/19 Active olmesartan (Benicar) 5 MG tabletIndication s:Hypertension, unspecified type Take 1 tablet (5 mg) by mouth Once per day. 90 tablet 06/18/19 25 2025 Active gabapentin (Neurontin) 300 MG capsuleIndicatio ns:Lumbar disc herniation with radiculopathy Take 1 capsule (300 mg) by mouth 3 times daily. 90 capsule 06/18/192025 Active fluticasone (Flovent) 110 MCG/ACT inhaler Inhale 2 puffs every 12 (twelve) hours. To prevent asthma symptoms 09/14/19 21 2024 Discontinued(C ost of medication) furosemide (Lasix) 20 MG tablet Take 1 tablet by mouth if needed each day. In the morning as needed for swelling 07/14/192024 Discontinued(T herapy completed) pseudoephedrine (Sudafed) 30 MG tablet Take 1 tablet (30 mg) by mouth every 4 (four) hours if needed for congestion for up to 10 days. 30 tablet 07/13/192024 Discontinued(T herapy completed) azelastine (Astelin) 0.1 % nasal spray Administer 1 spray into each nostril 2 times daily. Use in each nostril as directed 30 mL 12 07/13/192024 Discontinued(T herapy completed) azithromycin (Zithromax Z-Lauri) 250 MG tablet Take 2 tabs day 1 and then 1 tab daily to finish 6 tablet 07/13/19 24 2024 Discontinued(T herapy completed) amoxicillin-clav ulanate (Augmentin) 875-125 MG tablet Take 1 tablet by mouth 2 times daily. 14 tablet 01/28/20 24 2024 Discontinued(T herapy completed) bacitracin-polym yxin b (Polysporin) ointment Apply topically 2 times daily. Apply to affected area daily 30 g 01/28/20 24 2024 Discontinued(T herapy completed) chlorthalidone (Hygroton) 25 MG tabletIndication s:Elevated blood-pressure reading without diagnosis of hypertension Take 1 tablet (25 mg) by mouth Once per day. 90 tablet 3 02/04/20 24 2024 Discontinued(R eorder (will not trigger notification to Pharmacy)) pantoprazole (ProtoNix) 40 MG EC tablet TAKE 1 TABLET BY MOUTH EVERY DAY 90 tablet 04/07/20 24 2024 Discontinued(R eorder (will not trigger notification to Pharmacy)) ibuprofen 800 MG tablet Take 1 tablet (800 mg) by mouth if needed in the morning, at noon, and at bedtime for mild pain for up to 10 days. 30 tablet 05/23/19 25 2024 gabapentin (Neurontin) 100 MG capsule Take 200 mg by mouth. 08/15/19 24 2024 Discontinued(T herapy completed) methylPREDNISolo ne (Medrol Dospak) 4 MG tablets TAKE 6 TABLETS ON DAY 1 DIRECTED ON PACKAGE AND DECREASE BY 1 TAB EACH DAY FOR A TOTAL OF 6 DAYS 08/04/19 24 2024 Discontinued(T herapy completed) oxyCODONE (Oxy-IR) 5 MG immediate release capsule TAKE 1 CAPSULE BY MOUTH EVERY 6 HOURS NEEDED FOR PAIN 08/04/19 24 2024 Discontinued(T herapy completed) olmesartan (Benicar) 5 MG tablet Take 1 tablet (5 mg) by mouth Once per day. 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 The office has given him the earliest available appointment on 08/13/23 - agreed to give oxycodone 10 mg q6h prn for pain (5 mg tablet, 5 days supply). Patient and his stated they will use judiciously and are aware that it will be a short-term. - reviewed si/sx to seek a prompt medical attention Hypertension 11/09/2022 Assessment & Plan (11/09/2022 10:11 PM EDT): Pt on chlorthalidone daily and taking Lasix for leg swelling on and off From previous visits noted BP was borderline. One measurement was above 140 and today 161/94. Pt states getting anxious at visit. -Will hold on changing medication today but advised pt to be compliant w BP med -Prescribed BP machine to bring 3x/wk to PCP to adjust Rx as needed -F up w PCP in 3 w to monitor chronic conditions and BP Tinnitus 04/14/2022 Assessment & Plan (04/14/2022 8:22 AM EST): Declines audiology for now Blurry vision 04/14/2022 Assessment & Plan (04/14/2022 8:22 AM EST): Optometry referral Alcohol abuse 02/07/2018 Assessment & Plan (04/14/2022 8:21 AM EST): Recommend decreasing number of drinks He reports he knows he should do this and is contemplating how to make this change Edema of lower extremity 02/07/2018 Assessment & Plan (11/10/2022 8:43 AM EDT): -US left LE venous doppler 10/03/2022: There are small lymph nodes in the groin with largest lymph node measuring 4.5 x 1.2 x 2.8 cm.It has benign characteristics No DVT demonstrated in the left lower extremity. Pt having chronic bilateral lower edema that seems most likely related to a vascular etiology, likely due to venous insufficiency, secondary to obesity. Presentation of new R lower leg edema and erythema are most likely consistent w vascular pathology, however will give a short course of ATB even though it seems less likely to be cellulitis. Will rule out DVT. -Stat Doppler venous US of R leg -Referred today to vascular for evaluation of lower extremity edema. -Elevate lower extremities -Pt will benefit likely from compression stockings, but will start with vascular eval w specialist. -Prescribe Keflex BID for 5 d. -Pt pending to see surgeon, with possible biopsy of lymph nodes in L inguinal groin. -If neg vascular eval, may consider for echocardiogram as well would consider CT abd/pelvis to r/o obstruction for lymphedema as another possible dx of his LE edema Assessment & Plan (04/14/2022 8:20 AM EST): Start on chlorthalidone for BP, can also help with edema Elevate legs at end of day Wear compression stockings Obstructive sleep apnea syndrome 02/07/2018 Assessment & Plan (08/09/2023 5:44 AM EDT): - refer back to sleep medicine clinic Assessment & Plan (11/09/2022 10:00 PM EDT): Pt was referred for sleep medicine in 04/2022 and has not yet received a call for appt. -MA today printed letter for pt w info for where to call to schedule an appt. Assessment & Plan (04/14/2022 8:19 AM EST): diagnosed for many years Non compliant for past three due to infection concerns Still has machine CPAP Refer to sleep clinic to re-establish care and use Rash 02/07/2018 Assessment & Plan (04/14/2022 8:22 AM EST): Psoriasis of LE and elbows bilaterally Refer back to derm Not controlled with topicals alone Joint pain 05/05/2013 Asthma 05/13/2012 Assessment & Plan (04/14/2022 8:19 AM EST): Continue EDDIE prn Consider switch to Symbicort at next visit Depressive disorder 05/13/2012 Assessment & Plan (04/14/2022 8:21 AM EST): PHQ 9 0 today Gastroesophageal reflux disease 05/13/2012 Assessment & Plan (04/14/2022 8:20 AM EST): Protonix Lifestyle choices Class 3 severe obesity with serious comorbidity and body mass index (BMI) of 40.0 to 44.9 in adult, unspecified obesity type 05/13/2012 Assessment & Plan (04/14/2022 8:21 AM EST): Decrease fatty and sugary foods Labs today to screen for DM2 and HLD Pain in joint involving lower leg 05/13/2012 Tobacco dependence syndrome 05/13/2012 Assessment & Plan (11/09/2022 10:13 PM EDT): Reports social tobacco use -Advise for tobacco cessation. -Pt is refusing tobacco cessation aids and is refusing tobacco cessation program. Assessment & Plan (04/14/2022 8:22 AM EST): Encouraged him to quit again Visual impairment 05/13/2012 Assessment & Plan (04/14/2022 8:22 AM EST): Refer for vision exam Encounters Date Type Department Care Team Description 06/18/2024 3:00 PM EST Office Visit [facility] [address] [place] [phone] Cheyenne Cruz MD Hypertension, unspecified type (Primary Dx); Class 3 severe obesity with serious comorbidity and body mass index (BMI) of 40.0 to 44.9 in adult, unspecified obesity type (CMS/[facility]); Dietary counseling; Exercise counseling; Obstructive sleep apnea syndrome; Gastroesophageal reflux disease without esophagitis; Lumbar disc herniation with radiculopathy 06/18/2024 Travel 06/05/2024 Patient Outreach [facility] [address] [place] [phone] Cheyenne Cruz MD Pre-visit Planning ((Unable to reach for PVP screening, LVM)) 05/23/2024 10:00 AM EST Office Visit [facility] [address] [place] [phone] Agapito Vargas MD Nasal cavity mass (Primary Dx); Hypertension, unspecified type 05/23/2024 Telephone [facility] [address] [place] [address] Shanna Dwakins RN 05/21/24 [facility] [place] 05/23/2024 Telephone [facility] [address] [place] [phone] Shanna Dawkins RN [place] triage 05/23/2024 Travel 05/21/2024 Orders Only [facility] [address] [place] [phone] Cheyenne Cruz MD 05/15/2024 Telephone [facility] [address] [place] [address] [phone] Cheyenne Cruz MD Med Refill 04/07/2024 Telephone [facility] [address] [place] [phone] Cheyenne Cruz MD No Show 04/02/2024 Refill [facility] [address] [place] [phone] Ida Campos FNP from Last 3 Months Immunizations Name Administration Dates Next Due DTaP 04/08/1990, 8,03/08/1987,1986,1986 Hep B, Adolescent or Pediatric 11/18/1996,1995 Hep B, adult 11/18/1996,12/06/1995 Hib ([facility]) 10/08/1995,06/07/1990 IPV 02/05/1995, 8,1986,1986 Influenza injectable quadriv alent IIV4 with preservative 03/13/2018 MMR 04/08/1990,07/06/1987 TD (adult), 2 Lf tetanus tox oid, preservative free, adsorbed 07/13/2000,02/05/1995 Td (adult), 5 Lf tetanus tox oid, preservative free, adsorbed 12/05/2015 Tdap 11/28/2019,03/13/2018 Social History Tobacco Use Types Packs/Day Years [...] Orientation Straight 03/06/2022 10 :16 AM EDT Last Filed Vital Signs Vital Sign Reading Time Taken Comments Blood Pressure 158/92 06/18/2024 2:56 PM EST Pulse 98 06/18/2024 2:56 PM EST Temperature 36 ??C (96.8 ??F) 06/18/2024 2:56 PM EST Respiratory Rate 20 06/18/2024 2:56 PM EST Oxygen Saturation 95% 05/23/2024 10:34 AM EST Inhaled Oxygen Concentration - - Weight 146 kg (321 lb 14.4 oz) 06/18/2024 2:56 P M EST Height 185.4 cm (6' 1 ) 06/18/2024 2:56 PM EST Body Mass Index 42.47 06/18/2024 2:56 PM EST Plan of Treatment Health Maintenance Due Date Last Done Comments Hepatitis B Vaccines (4 of 4 - 4-dose series) 01/13/1997 11/18/1996, 11/18/1996, 12/06/1995, Additional history exists Alcohol/Substance Use Screening 1998 Family Planning (PISQ) 2001 Hepatitis A Vaccines (1 of 2 - Risk 2-dose series) 2005 Pneumococcal Vaccine: Pediatrics (0 to 5 Years) and At-Risk Patients (6 to 49) Years) (1 of 2 - PCV) 2005 Depression Screening 04/12/2023 04/12/2022, 04/12/20 SDOH Screening 04/12/2023 04/12/2022 COVID-19 Vaccine ( - season) 2024 Influenza Vaccine (#1) 2024 03/13/2018 Tobacco Screening 06/18/2025 06/18/2024 Lipid Panel 04/12/2027 04/12/2022 DTaP/Tdap/Td Vaccines (8 - Td or Tdap) 11/27/2029 11/28/2019, 03/13/2018, 12/05/2015, Additional history exists Zoster Vaccines (1 of 2) 2036 RSV Patients and Patients Aged 60 years or older (1 - 1-dose 75+ series) 2061 IPV Vaccines Completed 02/05/1995, 09/0 05/1987, 1986, Additional history exists HIB Vaccines Completed 10/08/1995, 06/07/1990 HIV Screening Completed 08/04/2022 Hepatitis C Screening Completed 08/04/2022 HPV Vaccines Aged Out No longer eligi ble based on patient's age to complete this topic Meningococcal Vaccine Aged Out No saúl shayy eligible based on patient's age to complete this topic RSV under 20 months Aged Out No longe r eligible based on patient's age to complete this topic Rotavirus Vaccines Aged Out No longer eligible based on patient's age to complete this topic Procedures Procedure Name Priority Date/Time Associated Diagnosis Comments CT SINUS FACIAL BONES WO CONTRAST Routine 05/21/2024 7:13 PM EST BASIC METABOLIC PANEL Routine 05/21/2024 4:22 PM EST CBC WITH AUTO DIFFERENTIAL Routine 05/21/2024 4:22 PM EST SARS COV2/INFLUENZA A/B AND RSV RNA QL NAAT Routine 05/21/2024 4:22 PM EST STREP A NUCLEIC ACID Routine 05/21/2024 4:22 PM EST HEPATITIS PANEL, ACUTE W/REFLEX TO CONFIRMATION Routine 08/04/2022 11:38 AM EDT Psoriasis HIV 1 RNA, QUANTITATIVE REAL TIME PCR Routine 08/04/2022 11:38 AM EDT Psoriasis LIPID PANEL, STANDARD Routine 04/12/2022 2:31 PM EST Class 3 severe obesity with serious comorbidity and body mass index (BMI) of 40.0 to 44.9 in adult, unspecified obesity type (CMS/HCC) from Last 3 Months or Most Recently Relevant to Health Maintenance Results * CT Sinus Facial Bones w/o Contrast (05/21/2024 7:13 PM EST) Anatomical Region Laterality Modality Computed Tomogra phy 05/21/2024 7:13 PM EST Narrative 05/21/2024 7:15 PM EST ? [facility] ?[address] ?[place] [address] ? CT Scan Report ? Signed ? Patient: Perez Costa,Tobi ?MR#: MM ?? [id number] ? : 1985 ?Acct:[id number] ? Age/Sex: 39 / M ?ADM Date: 01/15/25 ? Loc: HO.ED ? Attending Dr: ? Ordering Physician: Ceasar Mike ?? Date of Service: 05/21/24 ?? Procedure(s): CT facial bones wo IV con ?? Accession Number(s): [id number] ? cc: [facility]; Ceasar Mike ? Report Number: ?? [id number]: Total DLP = ??534.00 mGy-cm ? CLINICAL HISTORY: Left nostril mass? deviated septum? CT maxillofacial without contrast ? Comparison: None ? Findings: ?? 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 ?? Partial occlusion of the cugw-obtigqq-sayl-right mastoid air cells. Left ?? maxillary sinus [...] ?? as well as opacification of the eiey-gzgmtfh-smwc-right ethmoid air cells. ?? Central hyperdense appearance of the left maxillary sinus opacification ?? suggest chronic fungal sinusitis. ? This document has been electronically signed by: Raghu Ventura MD on ?? 05/21/2024 19:13:46 ? Dictated By: ?Raghu Ventura MD ? Signed By: ?<Electronically signed by Raghu Ventura MD in OV> ? 05/21/241914 ? DD/ 12 ? TD/TT: 05/21/241912 ? Financial Planning Advisor: ? Procedure Note Alisha, Yeni - 05/21/[address] [place] [address] [address] Scan Report Signed Patient: Eden Florentino#: [id number] : 1985Acct:[id number] Age/Sex: 39 / MADM Date: 05/21/24 Loc: HO.ED Attending Dr: Ordering Physician: Ceasar Mike Date of Service: 05/21/24 Procedure(s): CT facial bones wo IV con Accession Number(s): [id number] cc: [facility]; Ceasar Mike Report Number: [id number]: Total DLP = 534.00 mGy-cm CLINICAL HISTORY: Left nostril mass? deviated septum? CT maxillofacial without contrast Comparison: None Findings: Complete occlusion of the left nasal cavity and left maxillary sinus. Partial occlusion of the dhya-xhcrhdl-aojs-right mastoid air cells. Left maxillary sinus opacification [...] sinus as well as opacification of the otgk-mjfeqdj-gysr-right ethmoid air cells. Central hyperdense appearance of the left maxillary sinus opacification suggest chronic fungal sinusitis. This document has been electronically signed by: Raghu Ventura MD on 05/21/2024 19:13:46 Dictated By: Raghu Ventura MD Signed By: <Electronically signed by Raghu Ventura MD in OV> 05/21/241914 DD/ 12 TD/TT: 05/21/241912 Financial Planning Advisor: [facility] External Provider IMG CT PROCEDURES Edited Result - Final * Strep A Nucleic Acid (05/21/2024 4:22 PM EST) IDNOW SERIAL# [id number] [facility] Strep A Nucleic Acid Negative Negative [facility] Comment:All test results mus t [...] LAB MICROBIOLOGY - GENERAL ORDERABLES Final Result [facility] [address] [place] [address] [phone] * SARS-CoV-2 RNA, Influenza A/B, and RSV RNA, Ql NAAT (05/21/2024 4:22 PM EST) Pathologist [facility] Influenza A PCR NEGATIVE Negative [facility] Influenza B PCR NEGATIVE Negative [facility] Resp Syncy Virus RNA Qual PCR NEGATIVE Negative [facility] SARS COV2 PCR NEGATIVE Negative [facility] Comment:All test results mus t [...] use by authorized laboratories.Testing performed on the DVS [employer] GeneXpert utilizingreal-time RT-PCR.All SARS CoV2 and positive influenza A/B results arereported to [facility]. 05/21/2024 4:22 PM EST 05/21/2024 4:25 PM EST us Generic External Data Provider LAB MICROBIOLOGY - GENERAL ORDERABLES Final Result [facility] [address] [place] [phone] * (ABNORMAL) CBC auto differential (05/21/2024 4:22 PM EST) Pathologist [facility] White Blood Count 5.0 4.8 - 10.8 X10*3/uL [facility] Red Blood Count 4.42(L) 4.60 - 5.80 X10*6/uL [facility] Hemoglobin 13.4(L) 14.0 - 18.0 g/dl [facility] Hematocrit 39.4(L) 42.0 - 52.0 % [facility] Mean Corpuscular Volume 89.1 80.0 - 98.0 fL [facility] Mean Corpuscular Hemoglobin 30.3 27.0 - 33.0 pg [facility] Mean Corpuscular HGB Conc 34.0 31.0 - 36.0 g/dl [facility] Red Cell Distribution Width 12.9 11.0 - 16.0 % [facility] Platelet Count 210 160 - 400 X10*3/uL [facility] Mean Platelet Volume 9.9 9.4 - 12.4 fL [facility] Neutrophils Percent Auto 68.5 45 - 73 % [facility] Imm Gran Pct Auto 0.2 0.0 - 0.4 % [facility] Lymphocytes Percent Auto 21.4 20 - 40 % [facility] Monocytes Percent Auto 8.7 2 - 11 % [facility] Eosinophils Percent Auto 0.8 0 - 4 % [facility] Basophils Percent Auto 0.4 0 - 2 % [facility] NRBC Pct Auto 0.0 0.0 - 0.2 /100WBC [facility] Neutrophils Absolute Auto 3.4 2.0 - 8.3 x10*3/uL [facility] Imm Gran Abs Auto 0.01 0.00 - 0.03 X10*3/uL [facility] Lymphocytes Absolute Auto 1.1(L) 1.2 - 4.9 X10*3/uL [facility] Monocytes Absolute Auto 0.4 0.1 - 1.2 X10*3/uL [facility] Eosinophils Absolute Auto 0.0 0.0 - 0.4 X10*3/uL [facility] Basophils Absolute Auto 0.0 0.0 - 0.2 X10*3/uL [facility] NRBC Abs Auto 0.000 0.0 - 0.012 X10*3/uL [facility] 05/21/2024 4:22 PM EST 05/21/2024 4:25 PM EST us Generic External Data Provider LAB BLOOD ORDERAB LES Final Result [facility] [address] [place] [address] [phone] * (ABNORMAL) Basic Metabolic Panel (05/21/2024 4:22 PM EST) Sodium 145 135 - 145 mmol/L [facility] Potassium 3.9 3.3 - 5.1 mmol/L [facility] Chloride 106 96 - 108 mmol/L [facility] Carbon Dioxide 31(H) 22 - 29 mmol/L [facility] Anion Gap 12 12 - 20 [facility] Urea Nitrogen (BUN) 16 9 - 16 mg/dL [facility] Creatinine, Serum 0.86 0.5 - 1.4 mg/dL [facility] Creatinine Clr Calc Pharmacy 162.6 [facility] Comment:eGFR (calculated fro m the MDRD study equation) and eCrCl(calculated from the Cockcroft-Gault equation) are based ondifferent parameters and may not yield comparable results.If eCrCl result is absurd, please check patient'sheight/weight. Estimated Glomerular Filt Rate >60 [facility] Comment:Chronic Kidney Disea se: Estimated GFR < 60 mL/min/1.67k2Ufuivi Kidney Disease: Estimated GFR < 15 mL/min/1.73m2 Glucose 131(H) 60 - 115 mg/dL [facility] Calcium 9.5 8.4 - 10.2 mg/dL [facility] 05/21/2024 4:22 PM EST 05/21/2024 4:25 PM EST us Generic External Data Provider LAB BLOOD ORDERAB LES Final Result [facility] [address] [place] [address] [phone] * Hepatitis Panel, Acute??with Reflex to??Confirmation (08/04/2022 11:38 AM EDT) Hepatitis A IgM NON-REACT CORRIE NON-REACT CORRIE [employer] [facility] Comment: For additional information, please refer to http://[email or web address]/faq/ZNK366 (This link is being provided for informational/ educational purposes only.) Hepatitis B Surface Ag NON-REACT CORRIE NON-REACT CORRIE [employer] Hepatitis B Core Antibody IgM NON-REACT CORRIE NON-REACT CORRIE [employer] Hepatitis C Antibody NON-REACT CORRIE NON-REACT CORRIE [employer] Index 0.08 <1.00 [employer] Comment: HCV antibody was non-reactive. There is no laboratory evidence of HCV infection. In most cases, no further action is required. However, if recent HCV exposure is suspected, a test for HCV RNA (test code 86265) is suggested. For additional information please refer to http://[employer].YOGASMOGA/faq/NCV82s4 (This link is being provided for informational/ educational purposes only.) Blood Venous blood specimen / Unknown 08/04/2022 11:38 AM EDT 08/04/2022 11:38 AM EDT Narrative [facility] - 08/11/2022 3:24 PM EDT FASTING:NO FASTING: NO Bart Patel MD LAB BLOOD ORDERABLES Final Re sult [facility] [address], [place] [phone] [employer] [facility] [address] [place] [phone] * HIV-1 RNA, Quantitative, Real-Time PCR (08/04/2022 11:38 AM EDT) HIV 1 RNA, QN PCR NOT DETECTED NOT DETECTED copies/mL [employer] [place] [employer] HIV 1 RNA, QN PCR NOT DETECTED NOT DETECTED Log copies/mL [employer] Comment: This test was performed using Real-Time Polymerase Chain Reaction. Reportable Range: 20 copies/mL to 10,000,000 copies/mL (1.30 log copies/mL to 7.00 log copies/mL). Blood Venous blood specimen / Unknown 08/04/2022 11:38 AM EDT 08/04/2022 11:38 AM EDT Narrative [facility] - 08/11/2022 3:24 PM EDT FASTING:NO FASTING: NO Bart Patel MD LAB BLOOD ORDERABLES Final Re sult [facility] [address], [place] [phone] [employer] [address] [place] [phone] * Lipid Panel, Standard (04/12/2022 2:31 PM EST) [facility] Signature Cholesterol, Total 167 <200 mg/dL [employer] HDL Cholesterol 61 > OR = 40 mg/dL [employer] Triglycerides 126 <150 mg/dL [employer] [facility] LDL Cholesterol 83 mg/dL (calc) [employer] [facility] Comment: Reference range: <100 Desirable range <100 mg/dL for primary prevention; ?? <70 mg/dL for patients with CHD or diabetic patients with > or = 2 CHD risk factors. LDL-C is now calculated using the New-Keller calculation, which is a validated novel method providing better accuracy than the Friedewald equation in the estimation of LDL-C. New SS et al. DINO. 2013;310(19): 0371-1255 (http://education.Domainindex.com.[employer]/faq/VDD655) Chol/HDLC Ratio 2.7 <5.0 (calc) [employer] [facility] Non-HDL Cholesterol 106 <130 mg/dL (calc) [employer] [facility] Comment: For patients with diabetes plus 1 major ASCVD risk factor, treating to a non-HDL-C goal of <100 mg/dL (LDL-C of <70 mg/dL) is considered a therapeutic option. Blood Venous blood specimen / Unknown 04/12/2022 2:31 PM EST 04/12/2022 2:32 PM EST Cheyenne Cruz MD LAB BLOOD ORDERABLES Final Res ult [facility] [address], [place] [address] [employer] [facility] [address], [place] [address] from Last 3 Months or Most Recently Relevant to Health Maintenance Insurance [facility] Advance Directives Documents on File Type Date Recorded Patient Box Stapler Expl anation Advance Directives and Livin g Will 01/28/2024 9:29 AM ins [facility] Care Teams Tobacco Curer Relationship Specialty Start Date End Date Cheyenne Cruz MD [address] [place] [address] PCP - General Family Medicine 11/04/21
--- OUTSIDE RECORDS SUMMARY | 2024-06-18 16:21 | XMS_ITS | Encounter Summary ---
Author Organization [employer] Address [address] [facility] [address] [place] [address] Care Team Providers Care Saddle And Harness Maker Name Role Phone Cheyenne Cruz MD Primary Care Provider [phone] Encounter Details Date Type Department Care Team (Latest Contact Info) Description 05/23/2024 Travel Social History Tobacco Use Types Packs/Day [...] on filedocumented in this encounter Care Teams Saddle And Harness Maker Relationship Specialty Start Date End Date Cheyenne Cruz MD [address] [place] [id number] PCP - General Family Medicine 11/04/21 documented as of this encounter
--- OUTSIDE RECORDS SUMMARY | 2024-06-18 16:21 | XMS_ITS | Encounter Summary ---
Author Organization [employer] Address [address] [facility] [address] [place] [address] Care Team Providers Care Child Care Associate Name Role Phone Cheyenne Cruz MD Primary Care Provider [phone] Reason for Visit * Reason Comments Med Refill Encounter Details Date Type Department Care Team ([facility] st Contact Info) Description 08/30/2023 Refill [facility] MED[facility] [address] [place], [place] [phone] Cheyenne Cruz MD [address] [place], [place] [phone] Social History Tobacco Use Types Packs/Day Years [...] on filedocumented in this encounter Care Teams Child Care Associate Relationship Specialty Start Date End Date Cheyenne Cruz MD [address] [place] [id number] PCP - General Family Medicine 11/04/21 documented as of this encounter
--- OUTSIDE RECORDS SUMMARY | 2024-06-18 16:21 | XMS_ITS | Encounter Summary ---
Author Organization [employer] Address [address] [facility] [address] [place] [address] Care Team Providers Care Field Marketing Team Leader Name Role Phone Cheyenne Cruz MD Primary Care Provider [phone] Reason for Visit * Reason Comments Med Refill Encounter Details Date Type Department Care Team ([facility] st Contact Info) Description 08/14/2023 Refill [facility] MEDICINE [address] [place], [place] [phone] Cheyenne Cruz MD [address] [place], [place] [phone] Social History Tobacco Use Types Packs/Day Years [...] on filedocumented in this encounter Care Teams Field Marketing Team Leader Relationship Specialty Start Date End Date Cheyenne Cruz MD [address] [place] [phone] PCP - General Family Medicine 11/04/21 documented as of this encounter
[2024-06-18 16:48] LABS: Alanine Aminotransferase 22 U/L (0-40); Albumin Level 4.3 g/dL (3.5-5.0); Alkaline Phosphatase 72 U/L (39-117); Aspartate Amino Transferase 22 U/L (5-37); Bilirubin Direct 0.2 mg/dL (0.0-0.5); Bilirubin Total 0.7 mg/dL (0.0-1.0); Total Protein 7.3 g/dL (6.5-8.0)
[2024-06-18 16:54] LABS: Estimated Average Glucose 103 mg/dL; Hemoglobin A1C 120.6973 umol/L; Hemoglobin A1c % 5.2 % (<6.0); Total Hemoglobin (HGBA1C) 3587.9422 umol/L
== END 2024-06-18 15:31 | disposition home or self-care (01) ==
LOC: HO.HHCL 15:30
PROVIDERS: Visit Provider General Practice
DX: Z13.1 Encounter for screening for diabetes mellitus (principal); E66.813 Obesity, class 3; E66.01 Morbid (severe) obesity due to excess calories; Z68.41 Body mass index [BMI] 40.0-44.9, adult
CPT/HCPCS: 36415; 80076; 83036